=== PATIENT | female | born 1955 | race Caucasian/White ===

== ENCOUNTER 2018-05-25 21:49 | Emergency (ER) | payer OTHER ==
[~2018-05-25] VITALS: Ht 157.5 cm; Wt 67.9 kg
[~2018-05-25 21:49] MED LIST: AMLH550 PO; FLUO1CRE TOP
[2018-05-25 21:55] VITALS: TEMP 36.5; Ht 157.5 cm; Wt 67.9 kg
[2018-05-25] MEDS ORDERED: ONDANSETRON INJ 2 MG/ML 2 ML VIAL IV STA (22:06)
[2018-05-25] MEDS ORDERED: SODIUM CHLORIDE 0.9% 1000ML 1,000 ML IV STA (22:06)
[2018-05-25] MEDS ORDERED: HYDROmorphone INJ 0.5 MG/0.5 ML SYR IV PRN (22:15)
[2018-05-25 22:34] LABS: BASO % 0.2 %; BASO ABS # 0.02 K/uL (0-0.2); EOS % 0.1 %; EOS ABS # 0.01 K/uL (0-0.5); HEMATOCRIT 46.6 % (37-47); IG# 0.04 K/uL (0.00-0.02); LYMPH % 15.7 %; LYMPH ABS # 1.68 K/uL (1.2-3.4); MEAN CELL VOLUME 88.1 fL (80-100); MEAN CORPUSCULAR HEMOGLOBIN 30.2 pg (25-34); MEAN CORPUSCULAR HGB CONC 34.3 g/dl (32-36); MEAN PLATELET VOLUME 11.7 fL (7.4-10.4); MONO % 8.4 %; NEUT % 75.2 %; NEUT ABS # 8.08 K/uL (1.4-6.5); PLATELET COUNT 188 K/uL (130-400); RED CELL DISTRIBUTION WIDTH SD 41.2 fL (36.4-46.3); WHITE BLOOD COUNT 10.73 K/uL (4.8-10.8)
[2018-05-25 22:53] LABS: CALCIUM 9.8 mg/dl (8.5-10.1); CREATININE 1.18 mg/dl (0.60-1.20); POTASSIUM 3.5 mmol/L (3.5-5.1); TOTAL PROTEIN 7.2 gm/dl (6.4-8.2)
--- NOTE | 2018-05-25 22:55 | DIAGNOSTIC IMAGING REPORT ---
ABD/PELVIS WITHOUT FOR STONE HISTORY: 63 years-old Female right flank pain, prior stones acute right-sided flank pain with history of nephrolithiasis COMPARISON: CT abdomen and pelvis 07/22/2013 TECHNIQUE: Multiple axial CT images of the abdomen and pelvis were obtained without use of IV contrast. A dose lowering technique was used consistent with the principals of HARRIETT. FINDINGS: Mild dependent subsegmental bibasilar opacities suggest atelectasis. No pneumatosis or pneumoperitoneum. Imaged inferior cardiac chambers appear mildly enlarged. Mural fibrofatty changes about the apical septal left ventricular apex suggest scarring from prior infarction. Gallbladder, liver, spleen, pancreas and adrenal glands are unremarkable. Left kidney and ureter are unremarkable. No renal or ureteral calculi identified. Postoperative changes about the right ureteropelvic junction with progressively worsened right-sided hydronephrosis, now appearing to be severe. Mild perinephric stranding. There is abrupt narrowing at the ureteropelvic junction which is a chronic finding. The remainder of the right ureter appears unremarkable. Bladder and uterus are within normal limits. Unchanged prominence of the right ovary, 3.6 x 3.5 cm. Mild atherosclerosis about the aorta. Dense calcification adjacent to the left renal artery appears unchanged. No pathologically enlarged lymph nodes identified. There is no bowel obstruction or focal bowel wall thickening. Colonic diverticulosis without diverticulitis. Terminal ileum and appendix appear unremarkable. The breast parenchyma and soft tissues are within normal limits. Bones appear to be intact. Degenerative changes of the SI joints. Moderate intervertebral disc space narrowing at L4-L5. Multilevel annular disc bulging. IMPRESSION: 1. Progressively worsened right-sided hydronephrosis, now severe with findings again suggesting chronic UPJ obstruction with postsurgical changes noted about the right renal pelvis. 2. No ureteral calculi or left hydronephrosis. 3. Unchanged prominence of the right ovary. 4. No bowel obstruction or focal bowel wall thickening. Normal appendix. 5. Colonic diverticulosis without diverticulitis. The above report was generated using voice recognition software. It may contain grammatical, syntax or spelling errors. Electronically signed by: Jovanny Liao M.D. 05/25/2018 10:54 PM Dictated Date/Time: 05/25/2018 10:47 PM
[2018-05-25] MEDS ORDERED: HYDR12.55 PO (23:12)
[2018-05-25] MEDS ORDERED: AMLH/550 PO (23:12)
[2018-05-25 23:30] VITALS: PULSE 71
[2018-05-26] MEDS ORDERED: CIPR-255 PO (00:25)
[2018-05-26] MEDS ORDERED: NORCO 5/325MG HOME PACK PO ONE (00:30)
[2018-05-26] MEDS ORDERED: CIPROFLOXACIN 500MG HOME PACK PO ONE (00:30)
[2018-05-26 00:46] VITALS: BP 130/55; O2SAT 98
--- NOTE | 2018-05-26 01:13 | EMERGENCY ROOM VISIT NOTE ---
History Report prepared by Suzette: Johnnie Zarco Under the Supervision of: Dr. Jarek Lisa M.D. First contact with patient: 21:59 Chief Complaint: FLANK PAIN Stated Complaint: BACK PAIN ON R SIDE GOING INTO FRONT,VOMITING History of Present Illness The patient is a 63 year old female who presents to the Emergency Room with complaints of constant right flank pain that started today. She rates her pain as a 9/10 in severity. The patient states the pain radiates from her right back into her right abdomen. She describes the pain as a sharp sensation. The patient states that she woke up this morning with pain on her right side. She reports that this afternoon she became nauseous and started vomiting. She states she is currently experiencing shortness of breath and a headache due to her pain. The patient denies LOC, fevers, chills, diaphoresis, visual changes, neck pain, chest pain, melena, hematochezia, urinary symptoms, numbness, weakness, lymphadenopathy, rash, or other complaints. She denies taking any medications for her pain. The patient states that her symptoms are similar to when she had an infection in the past. She states she followed up with Dr. Malone. Source of History: patient Onset: this morning Position: other (right flank) Symptom Intensity: 9/10 Quality: sharp Timing: constant Associated Symptoms: + headache, + SOB, + nausea, + vomiting, + abdominal pain, + back pain Review of Systems See HPI for pertinent positives and negatives. A total of ten systems were reviewed and were otherwise negative. Past Medical & Surgical Medical Problems: (1) HTN (hypertension) (2) Kidney stones Family History Kidney stone Social History Smoking Status: Current Every Day Smoker Alcohol Use: none Drug Use: none Marital Status: Occupation Status: employed Current/Historical Medications Scheduled Amiloride/Hctz (Amiloride/Hydrochlorothia 5-50 mg), 1 TAB PO DAILY Ciprofloxacin Hcl (Cipro), 500 MG PO BID Allergies Coded Allergies: Penicillins (Verified Allergy, Unknown, ., 05/25/18) Sulfa Drugs (Verified Allergy, Unknown, ., 05/25/18) Physical Exam Vital Signs Date Time Temp Pulse Resp B/P (MAP) Pulse Ox O2 Delivery O2 Flow Rate FiO2 05/26/18 00:46 16 130/55 98 05/25/18 23:30 71 05/25/18 23:15 65 18 141/68 97 Room Air 05/25/18 21:55 36.5 67 20 142/62 100 Room Air Physical Exam GENERAL: Awake, alert, uncomfortable appearing, in no distress HENT: Normocephalic, atraumatic. Oropharynx unremarkable. EYES: Normal conjunctiva. Sclera non-icteric. NECK: Supple. No nuchal rigidity. FROM. No masses. RESPIRATORY: Clear to auscultation. No wheezes. No rales. Normal respiratory effort. CARDIAC: Normal rate. Normal rhythm. No murmurs. No rubs. Extremities warm and well perfused. Pulses equal. No JVD. GI: Soft, non-distended. No tenderness to palpation. No rebound or guarding. No masses. RECTAL: Deferred. MUSCULOSKELETAL: Atraumatic. Chest examination reveals no tenderness. The back is symmetrical on inspection without obvious abnormality. There is right flank and right CVA tenderness to palpation. No joint edema. LOWER EXTREMITIES: Calves are equal size bilaterally and non-tender. No edema. No discoloration. NEURO: Normal sensorium. No sensory or motor deficits noted. SKIN: No rash or jaundice noted. Medical Decision & Procedures ER Provider Diagnostic Interpretation: Radiology results as stated below per my review and radiologist interpretation: ABD/PELVIS WITHOUT FOR STONE HISTORY: 63 years-old Female right flank pain, prior stones acute right-sided flank pain with history of nephrolithiasis COMPARISON: CT abdomen and pelvis 07/22/2013 TECHNIQUE: Multiple axial CT images of the abdomen and pelvis were obtained without use of IV contrast. A dose lowering technique was used consistent with the principals of HARRIETT. FINDINGS: Mild dependent subsegmental bibasilar opacities suggest atelectasis. No pneumatosis or pneumoperitoneum. Imaged inferior cardiac chambers appear mildly enlarged. Mural fibrofatty changes about the apical septal left ventricular apex suggest scarring from prior infarction. Gallbladder, liver, spleen, pancreas and adrenal glands are unremarkable. Left kidney and ureter are unremarkable. No renal or ureteral calculi identified. Postoperative changes about the right ureteropelvic junction with progressively worsened right-sided hydronephrosis, now appearing to be severe. Mild perinephric stranding. There is abrupt narrowing at the ureteropelvic junction which is a chronic finding. The remainder of the right ureter appears unremarkable. Bladder and uterus are within normal limits. Unchanged prominence of the right ovary, 3.6 x 3.5 cm. Mild atherosclerosis about the aorta. Dense calcification adjacent to the left renal artery appears unchanged. No pathologically enlarged lymph nodes identified. There is no bowel obstruction or focal bowel wall thickening. Colonic diverticulosis without diverticulitis. Terminal ileum and appendix appear unremarkable. The breast parenchyma and soft tissues are within normal limits. Bones appear to be intact. Degenerative changes of the SI joints. Moderate intervertebral disc space narrowing at L4-L5. Multilevel annular disc bulging. IMPRESSION: 1. Progressively worsened right-sided hydronephrosis, now severe with findings again suggesting chronic UPJ obstruction with postsurgical changes noted about the right renal pelvis. 2. No ureteral calculi or left hydronephrosis. 3. Unchanged prominence of the right ovary. 4. No bowel obstruction or focal bowel wall thickening. Normal appendix. 5. Colonic diverticulosis without diverticulitis. The above report was generated using voice recognition software. It may contain grammatical, syntax or spelling errors. Electronically signed by: Jovanny Liao M.D. 05/25/2018 10:54 PM Dictated Date/Time: 05/25/2018 10:47 PM Laboratory Results 05/25/18 22:22 Red Blood Count 5.29, Mean Corpuscular Volume 88.1, Mean Corpuscular Hemoglobin 30.2, Mean Corpuscular Hemoglobin Concent 34.3, Mean Platelet Volume 11.7, Neutrophils (%) (Auto) 75.2, Lymphocytes (%) (Auto) 15.7, Monocytes (%) (Auto) 8.4, Eosinophils (%) (Auto) 0.1, Basophils (%) (Auto) 0.2, Neutrophils # (Auto) 8.08, Lymphocytes # (Auto) 1.68, Monocytes # (Auto) 0.90, Eosinophils # (Auto) 0.01, Basophils # (Auto) 0.02 05/25/18 22:22 Test 05/25/18 22:22 05/25/18 23:10 White Blood Count 10.73 K/uL (4.8-10.8) Red Blood Count 5.29 M/uL (4.2-5.4) Hemoglobin 16.0 g/dL (12.0-16.0) Hematocrit 46.6 % (37-47) Mean Corpuscular Volume 88.1 fL (80-100) Mean Corpuscular Hemoglobin 30.2 pg (25-34) Mean Corpuscular Hemoglobin Concent 34.3 g/dl (32-36) Platelet Count 188 K/uL (130-400) Mean Platelet Volume 11.7 fL (7.4-10.4) Neutrophils (%) (Auto) 75.2 % Lymphocytes (%) (Auto) 15.7 % Monocytes (%) (Auto) 8.4 % Eosinophils (%) (Auto) 0.1 % Basophils (%) (Auto) 0.2 % Neutrophils # (Auto) 8.08 K/uL (1.4-6.5) Lymphocytes # (Auto) 1.68 K/uL (1.2-3.4) Monocytes # (Auto) 0.90 K/uL (0.11-0.59) Eosinophils # (Auto) 0.01 K/uL (0-0.5) Basophils # (Auto) 0.02 K/uL (0-0.2) RDW Standard Deviation 41.2 fL (36.4-46.3) RDW Coefficient of Variation 13.0 % (11.5-14.5) Immature Granulocyte % (Auto) 0.4 % Immature Granulocyte # (Auto) 0.04 K/uL (0.00-0.02) Anion Gap 8.0 mmol/L (3-11) Est Creatinine Clear Calc Drug Dose 43.5 ml/min Estimated GFR () 56.4 Estimated GFR (Non- 48.7 BUN/Creatinine Ratio 12.5 (10-20) Calcium Level 9.8 mg/dl (8.5-10.1) Total Bilirubin 0.8 mg/dl (0.2-1) Direct Bilirubin 0.2 mg/dl (0-0.2) Aspartate Amino Transf (AST/SGOT) 14 U/L (15-37) Alanine Aminotransferase (ALT/SGPT) 18 U/L (12-78) Alkaline Phosphatase 123 U/L (45-117) Total Protein 7.2 gm/dl (6.4-8.2) Albumin 4.0 gm/dl (3.4-5.0) Lipase 83 U/L (73-393) Urine Color YELLOW Urine Appearance CLEAR (CLEAR) Urine pH 6.5 (4.5-7.5) Urine Specific [place] 1.024 (1.000-1.030) Urine Protein NEG (NEG) Urine Glucose (UA) NEG (NEG) Urine Ketones 1+ (NEG) Urine Occult Blood NEG (NEG) Urine Nitrite NEG (NEG) Urine Bilirubin NEG (NEG) Urine Urobilinogen NEG (NEG) Urine Leukocyte Esterase NEG (NEG) Laboratory results reviewed by me Medications Administered Medications (Trade) Dose Ordered Sig/Sharath Route Start Time Stop Time Status Last Admin Dose Admin Ondansetron HCl (Zofran Inj) 4 mg NOW STAT IV 05/25/18 22:06 05/25/18 22:09 DC 05/25/18 22:29 4 MG Sodium Chloride 1,000 ml @ 200 mls/hr Q5H STAT IV 05/25/18 22:06 05/26/18 03:05 05/25/18 22:29 200 MLS/HR Hydromorphone HCl (Dilaudid Inj) 0.5 mg Q15M PRN IV 05/25/18 22:15 06/08/18 22:14 05/25/18 22:29 0.5 MG ED Course 2205: The patient was evaluated in room A02. A complete history and physical exam was performed. 2206: Ordered Sodium Chloride 1000 ml @ 200 mls/hr IV, Zofran Injection 4 mg IV. 2215: Ordered Dilaudid Injection 0.5 mg IV. 2246: The patient is currently at CT. 2259: I reevaluated the patient and she is feeling better. 0011: I reevaluated the patient. Discussed results and discharge instructions: He verbalized understanding and agreement. The patient is ready for discharge. 0030: Ordered Ciprofloxacin 1 homepack PO, Hydrocodone Bitart/ Acetaminophen 1 homepack PO. Medical Decision Prior records/ancillary studies reviewed. Triage Nursing notes reviewed and agree them. Additional history obtained from the family. The patient's history was concerning for flank and abdominal pain. Differential diagnosis: Etiologies such as renal colic, appendicitis, diverticulitis, mesenteric ischemia, aortic pathology, infections, inflammatory bowel disease, PUD, biliary pathology, UTI, as well as others were entertained. Physical examination findings: As above. ER treatment provided: IV Zofran IV normal saline IV Dilaudid On reassessment the patient felt better. Cipro home pack Diagnostic interpretation by me: The labs revealed an unremarkable CBC and chemistry panel. Urinalysis unremarkable Imaging studies: CT of the abdomen and pelvis as above. Right-sided hydro-noted. Chronic UPJ obstruction. The patient has right flank pain. She has chronic right UPJ obstruction findings on CAT scan. There does not appear to be any acute ureterolithiasis. Urinalysis is rather unremarkable. She does have a history of pyelonephritis. Given the findings a urine culture was sent. I will cover the patient on Cipro. She is doing very well at this time and I believe can be discharged safely. If she worsens in any way she will be back to the emergency department. She has a urologist with the [facility] team and will follow up with them. By the evaluation outlined above emergent etiologies such as appendicitis, diverticulitis, mesenteric ischemia, aortic pathology, infections, inflammatory bowel disease, PUD, biliary pathology, kidney stone as well as others were deemed relatively unlikely. The patient and were informed about the findings as listed above. All questions were answered and they were pleased with the treatment. Return instructions were outlined and the patient was discharged in stable condition. Outpatient prescription management: [place] home pack Cipro Referral: The pt was referred to [facility] for follow up care regarding her issue. Medication Reconcilliation Current Medication List: was personally reviewed by me Blood Pressure Screening Patient's blood pressure: Elevated blood pressure Blood pressure disposition: Elevated BP felt to be situational Impression Primary Impression: Right flank pain Scribe Attestation The scribe's documentation has been prepared under my direction and personally reviewed by me in its entirety. I confirm that the note above accurately reflects all work, treatment, procedures, and medical decision making performed by me. Departure Information Dispostion Home / Self-Care Prescriptions Ciprofloxacin Hcl (CIPRO) 500 Mg Tab 500 MG PO BID, #12 TAB Prov: Jarek Lisa MD 05/26/18 Referrals No Doctor, Assigned (PCP) Forms HOME CARE DOCUMENTATION FORM, IMPORTANT VISIT INFORMATION Patient Instructions My [facility] Additional Instructions Hydrocodone/acetaminophen 5/325mg: Take 1-2 pills every 6 hours as needed for pain. Avoid additional Acetaminophen/Tylenol, alcohol, operating machinery or dangerous equipment, working on ladders or roofs, DRIVING, or situations where being under the influence may be dangerous. It is recommended to use a stool softener such as Colace, 100mg twice daily while taking this medication to avoid constipation. Ciprofloxacin 500mg: Take one pill twice daily for 7 days for your infection. All antibiotics can cause diarrhea. If this occurs and you feel worse or it does not resolve in 1-2 days follow up with your doctor or return to the Emergency Department as this could be signs of serious underlying problems. Any medication can cause an allergic reaction or complication, stop the pills immediately and return to the ER for rash, hives, breathing difficulties, tendon pain, tendon injury, or swelling. Ibuprofen(Motrin, Advil) may be used for fever or pain. Use 600mg every six hours as needed. Take with food. Avoid using more than 2400mg in a 24 hour period. Do not use 2400mg per day for more than three consecutive days without physician direction. Prolonged inappropriate use can lead to stomach upset or ulcers. This medication can be taken if you need to drive, work, or perform activities which may be dangerous when taking narcotic pain medication. (AND/OR) Acetaminophen(Tylenol) may be used for fever or pain. Use 1000mg every six hours as needed. Avoid using more than 4000mg in a 24 hour period. This medication can be taken if you need to drive, work, or perform activities which may be dangerous when taking narcotic pain medication. Rest and avoid strenuous activity until your symptoms resolve. Return to the ER for worsening abdominal or back pain, vomiting, fevers, passing out, or as needed. Follow up with [facility] tomorrow, [phone], to arrange a visit. Follow-up with your primary clinic this week as well.
== END 2018-05-26 00:45 | disposition home or self-care (01) ==
LOC: C.EDB 21:51 → C.EDA 05-26 00:45
DX: N13.0 Hydronephrosis with ureteropelvic junction obstruction (principal); I10 Essential (primary) hypertension; F17.200 Nicotine dependence, unspecified, uncomplicated; Z87.442 Personal history of urinary calculi; Z84.1 Family history of disorders of kidney and ureter; Z88.0 Allergy status to penicillin; Z88.2 Allergy status to sulfonamides

== ENCOUNTER 2018-05-31 23:57 | Observation (INO) | payer SELFPAY ==
[~2018-05-31] VITALS: Ht 157.5 cm; Wt 70.2 kg
[~2018-05-31 23:57] MED LIST changes: +AMLH/550 PO; -AMLH550 PO; +CIPR-255 PO; -FLUO1CRE TOP
[2018-06-01] VITALS (14 sets, daily range): BP systolic 111–130; BP diastolic 60–77; PULSE 54–77; TEMP 36.6–37; O2SAT 90–100; Ht 157.5 cm; Wt 70.2 kg
[2018-06-01] MEDS ORDERED: ONDANSETRON INJ 2 MG/ML 2 ML VIAL IV STA (00:11)
[2018-06-01] MEDS ORDERED: SODIUM CHLORIDE 0.9% 1000ML 1,000 ML IV STA (00:11)
[2018-06-01] MEDS ORDERED: HYDROmorphone INJ 1 MG/ML SYR IV STA (00:11)
--- NOTE | 2018-06-01 00:15 | EMERGENCY ROOM VISIT NOTE ---
History Report prepared by Suzette: Valerie Frye Under the Supervision of: Dr. Lio Stephens M.D. First contact with patient: 00:05 Chief Complaint: ABDOMINAL PAIN Stated Complaint: PAIN IN BACK AND FRONT History of Present Illness The patient is a 63 year old female who presents to the Emergency Room with complaints of persistent right flank pain that started a few hours ago. The patient rates her pain a 10/10 in severity. The patient reports she was seen here 5 days ago and was diagnosed with a kidney infection. She states she has been taking her antibiotics and her pain has been under control until tonight. She notes she ate spicy food for dinner and the pain returned shortly after. She also complains of nausea, dry heaves, chills, and leg swelling. She denies vomiting, chest pain, or burning with urination. She denies a history of gallbladder issues. Source of History: patient Onset: a few hours ago Position: other (right flank) Symptom Intensity: 10/10 Timing: other (persistent) Associated Symptoms: + chills, + nausea, No chest pain, No vomiting, No urinary symptoms Review of Systems See HPI for pertinent positives & negatives. A total of 10 systems reviewed and were otherwise negative. Past Medical & Surgical Medical Problems: (1) HTN (hypertension) (2) Kidney stones (3) Right flank discomfort Family History Kidney stone Social History Smoking Status: Current Every Day Smoker Alcohol Use: none Drug Use: none Marital Status: Occupation Status: employed Current/Historical Medications Scheduled Amiloride/Hctz (Amiloride/Hydrochlorothia 5-50 mg), 1 TAB PO DAILY Ciprofloxacin Hcl (Cipro), 500 MG PO BID Allergies Coded Allergies: Penicillins (Verified Allergy, Unknown, ., 06/01/18) Sulfa Drugs (Verified Allergy, Unknown, ., 06/01/18) Physical Exam Vital Signs Date Time Temp Pulse Resp B/P (MAP) Pulse Ox O2 Delivery O2 Flow Rate FiO2 06/01/18 03:21 63 20 100 Nasal Cannula 2.0 06/01/18 03:06 68 24 100 Nasal Cannula 2.0 06/01/18 03:01 136/67 06/01/18 02:37 70 18 100 Nasal Cannula 2.0 06/01/18 02:31 135/69 06/01/18 02:02 59 21 114/54 100 Nasal Cannula 2.0 06/01/18 00:41 86 Room Air 06/01/18 00:41 58 117/60 98 Nasal Cannula 2.0 06/01/18 00:41 99 Nasal Cannula 2.0 06/01/18 00:36 72 8 00:24 99 Room Air 06/01/18 00:01 36.7 78 18 150/85 99 Room Air Physical Exam GENERAL: Patient is uncomfortable appearing and in moderate distress. She is holding right flank. EYES: No scleral icterus, unremarkable pupils. ENT: Mucous membranes moist, no nasal congestion. NECK: No masses appreciated, no meningismus, trachea is midline. RESPIRATORY: No dyspnea. Clear to auscultation and equal bilaterally. No wheeze , no rhonchi. CARDIOVASCULAR: Regular rate and rhythm. No murmurs, rubs, gallops appreciated. GASTROINTESTINAL: Abdomen soft, nontender, no peritonitis. Bowel sounds positive. No masses appreciated. BACK: No midline tenderness, no CVA tenderness EXTREMITIES: Normal motion all extremities, no cyanosis, no edema. NEUROLOGIC: Alert and oriented, no acute motor or sensory deficits, no focal weakness, cranial nerves grossly intact. SKIN: No rash, no jaundice, no diaphoresis. Medical Decision & Procedures ER Provider Diagnostic Interpretation: Radiology results and stated below per my review and radiologist interpretation: US RENAL: Right kidney measures 11.2 cm in length showing marked hydronephrosis and trace perinephric fluid along the upper and lower poles. Some echogenic cortex. Unable this is possible ureter due to overlying bowel gas. Left kidney measures 9 cm and is otherwise unremarkable with no hydronephrosis seen. If concerned for distal right collecting system obstruction, could consider CT angiogram Radiologist: Parag Gomez M.D. Laboratory Results 06/01/18 00:23 Red Blood Count 5.01, Mean Corpuscular Volume 88.2, Mean Corpuscular Hemoglobin 30.1, Mean Corpuscular Hemoglobin Concent 34.2, Mean Platelet Volume 11.3, Neutrophils (%) (Auto) 76.1, Lymphocytes (%) (Auto) 14.0, Monocytes (%) (Auto) 8.1, Eosinophils (%) (Auto) 1.5, Basophils (%) (Auto) 0.1, Neutrophils # (Auto) 8.67, Lymphocytes # (Auto) 1.59, Monocytes # (Auto) 0.92, Eosinophils # (Auto) 0.17, Basophils # (Auto) 0.01 06/01/18 00:23 Test 06/01/18 00:23 06/01/18 02:10 White Blood Count 11.38 K/uL (4.8-10.8) Red Blood Count 5.01 M/uL (4.2-5.4) Hemoglobin 15.1 g/dL (12.0-16.0) Hematocrit 44.2 % (37-47) Mean Corpuscular Volume 88.2 fL (80-100) Mean Corpuscular Hemoglobin 30.1 pg (25-34) Mean Corpuscular Hemoglobin Concent 34.2 g/dl (32-36) Platelet Count 186 K/uL (130-400) Mean Platelet Volume 11.3 fL (7.4-10.4) Neutrophils (%) (Auto) 76.1 % Lymphocytes (%) (Auto) 14.0 % Monocytes (%) (Auto) 8.1 % Eosinophils (%) (Auto) 1.5 % Basophils (%) (Auto) 0.1 % Neutrophils # (Auto) 8.67 K/uL (1.4-6.5) Lymphocytes # (Auto) 1.59 K/uL (1.2-3.4) Monocytes # (Auto) 0.92 K/uL (0.11-0.59) Eosinophils # (Auto) 0.17 K/uL (0-0.5) Basophils # (Auto) 0.01 K/uL (0-0.2) RDW Standard Deviation 41.2 fL (36.4-46.3) RDW Coefficient of Variation 13.0 % (11.5-14.5) Immature Granulocyte % (Auto) 0.2 % Immature Granulocyte # (Auto) 0.02 K/uL (0.00-0.02) Anion Gap 9.0 mmol/L (3-11) Est Creatinine Clear Calc Drug Dose 44.5 ml/min Estimated GFR () 57.0 Estimated GFR (Non- 49.2 BUN/Creatinine Ratio 13.7 (10-20) Calcium Level 9.0 mg/dl (8.5-10.1) Magnesium Level 1.9 mg/dl (1.8-2.4) Total Bilirubin 0.4 mg/dl (0.2-1) Direct Bilirubin 0.1 mg/dl (0-0.2) Aspartate Amino Transf (AST/SGOT) 11 U/L (15-37) Alanine Aminotransferase (ALT/SGPT) 17 U/L (12-78) Alkaline Phosphatase 132 U/L (45-117) Total Protein 6.9 gm/dl (6.4-8.2) Albumin 3.7 gm/dl (3.4-5.0) Lipase 121 U/L (73-393) Urine Color YELLOW Urine Appearance CLEAR (CLEAR) Urine pH 6.5 (4.5-7.5) Urine Specific Blanchard 1.011 (1.000-1.030) Urine Protein NEG (NEG) Urine Glucose (UA) NEG (NEG) Urine Ketones NEG (NEG) Urine Occult Blood NEG (NEG) Urine Nitrite NEG (NEG) Urine Bilirubin NEG (NEG) Urine Urobilinogen NEG (NEG) Urine Leukocyte Esterase NEG (NEG) Urine WBC (Auto) 0 /hpf (0-5) Urine RBC (Auto) 0-4 /hpf (0-4) Urine Hyaline Casts (Auto) 0 /lpf (0-5) Urine Epithelial Cells (Auto) 10-20 /lpf (0-5) Urine Bacteria (Auto) NEG (NEG) Laboratory results as reviewed by me. Medications Administered Medications (Trade) Dose Ordered Sig/Sharath Route Start Time Stop Time Status Last Admin Dose Admin Sodium Chloride 1,000 ml @ 999 mls/hr Q1H1M STAT IV 06/01/18 00:11 06/01/18 01:11 DC 06/01/18 00:24 999 MLS/HR Hydromorphone HCl (Dilaudid Inj) 1 mg NOW STAT IV 06/01/18 00:11 06/01/18 00:13 DC 06/01/18 00:24 1 MG Ondansetron HCl (Zofran Inj) 4 mg NOW STAT IV 06/01/18 00:11 06/01/18 00:13 DC 06/01/18 00:24 4 MG Hydromorphone HCl (Dilaudid Inj) 0.5 mg NOW STAT IV 06/01/18 03:07 06/01/18 03:08 DC 06/01/18 03:34 0.5 MG Potassium Chloride (Klor-Con M10) 40 meq NOW STAT PO 06/01/18 03:26 06/01/18 03:38 DC 06/01/18 03:48 40 MEQ ED Course 0006: The patient was evaluated in room C9. A complete history and physical exam was performed. 0100: I rechecked the patient. She states she is feeling much better. 0305: I rechecked the patient. She states her pain is starting to return. I discussed hospitalization with the patient, which she agrees to. 0313: I spoke with Deny Duffy. He agrees to evaluate the patient for further management. He also recommends I consult with the electronic court recorder Urologist. 0320: I have consulted with Stevan Youssef about the patient's case. Medical Decision Differential: Renal Colic, Pyelonephritis, Hydronephrosis, Appendicitis, Diverticulitis, Retroperitoneal Bleed/Infection, Aortic Pathology, MSK, Neurologic Pathology, amongst other pathologies entertained. 63 yr old female with right flank pain arrives with complaint of worsening pain despite round abx and pain medications. CT other day showed right severe hydro. US this appears to continue. Cr OK currently. No evidence this is infectious currently. No peritonitis. Requiring second round abx. Reviewed with hospitalist and Uro. Medication Reconcilliation Current Medication List: was personally reviewed by me Blood Pressure Screening Patient's blood pressure: Normal blood pressure Consults Time Called: [phone] Consulting Physician: Deny Duffy Returned Call: [phone] I spoke with Deny Duffy. He agrees to evaluate the patient for further management. He also recommends I consult with the electronic court recorder Urologist. Additional Consults: Time Called: [phone] Consulted Physician: Stevan Serrano Returned Call: [phone] Additional Comments: I have consulted with Stevan Youssef about the patient's case. Impression Primary Impression: Hydronephrosis, right Additional Impression: Failure of outpatient treatment Scribe Attestation The scribe's documentation has been prepared under my direction and personally reviewed by me in its entirety. I confirm that the note above accurately reflects all work, treatment, procedures, and medical decision making performed by me. Departure Information Dispostion Being Evaluated By Hospitalist Referrals No Doctor, Assigned (PCP) Patient Instructions My [facility] Problem Qualifiers
[2018-06-01 00:36] LABS: BASO % 0.1 %; BASO ABS # 0.01 K/uL (0-0.2); EOS % 1.5 %; EOS ABS # 0.17 K/uL (0-0.5); HEMATOCRIT 44.2 % (37-47); HEMOGLOBIN 15.1 g/dL (12.0-16.0); IG# 0.02 K/uL (0.00-0.02); LYMPH ABS # 1.59 K/uL (1.2-3.4); MEAN CELL VOLUME 88.2 fL (80-100); MEAN CORPUSCULAR HEMOGLOBIN 30.1 pg (25-34); MEAN CORPUSCULAR HGB CONC 34.2 g/dl (32-36); MEAN PLATELET VOLUME 11.3 fL (7.4-10.4); MONO % 8.1 %; MONO ABS # 0.92 K/uL (0.11-0.59); NEUT % 76.1 %; NEUT ABS # 8.67 K/uL (1.4-6.5); PLATELET COUNT 186 K/uL (130-400); RED CELL DISTRIBUTION WIDTH SD 41.2 fL (36.4-46.3); WHITE BLOOD COUNT 11.38 K/uL (4.8-10.8)
[2018-06-01] MEDS ORDERED: CIPR1TAB10 PO (00:41)
[2018-06-01 00:57] LABS: ALBUMIN 3.7 gm/dl (3.4-5.0); CREATININE 1.17 mg/dl (0.60-1.20); POTASSIUM 3.4 mmol/L (3.5-5.1); TOTAL PROTEIN 6.9 gm/dl (6.4-8.2)
[2018-06-01] MEDS ORDERED: HYDROmorphone INJ 0.5 MG/0.5 ML SYR IV STA (03:07)
[2018-06-01] MEDS ORDERED: POTASSIUM CHLORIDE 10 MEQ TABCR PO STA (03:26)
[2018-06-01] MEDS ORDERED: TRAMADOL HCL 50 MG TAB PO PRN (04:00)
[2018-06-01] MEDS ORDERED: LORAZEPAM 2 MG/ML 1 ML VIAL IV PRN (04:00)
[2018-06-01] MEDS ORDERED: ACETAMINOPHEN 325 MG TAB PO PRN (04:00)
[2018-06-01] MEDS ORDERED: IV FLUIDS COMPLETED PRN (04:15)
[2018-06-01] MEDS ORDERED: LORAZEPAM INJ 0.5 MG in SYRINGE 0.75 ML IV PRN (04:45)
[2018-06-01] MEDS: NSS + 20MEQ KCL 1000ML 1,000 ML IV SCH ×3 (04:49→23:41)
[2018-06-01] MEDS: MoRPHine SULFATE 4 MG/ML 1 ML CARP\\VIAL IV PRN ×2 (06:34→09:50)
--- NOTE | 2018-06-01 07:00 | DIAGNOSTIC IMAGING REPORT ---
RENAL ULTRASOUND CLINICAL HISTORY: Worsening right flank pain. COMPARISON STUDY: CT of the abdomen and pelvis April 27, 2018. TECHNIQUE: Sonography of the kidneys and the urinary bladder was performed. FINDINGS: The right kidney measures 11.2 cm in maximal dimension and the left measures 9 cm. Severe right hydronephrosis is again noted, as shown on CT of May 25, 2018. There is trace right perinephric fluid. Right renal atrophy is noted. There is no left hydronephrosis. Right ureteral jet was not identified. No calculi were identified. IMPRESSION: 1. Severe right hydronephrosis, similar to CT of May 25, 2018 when allowing for differences in technique. Trace right perinephric fluid. 2. No left hydronephrosis. Electronically signed by: Juanjose Kerns M.D. 06/01/2018 6:59 AM Dictated Date/Time: 06/01/2018 6:57 AM
[2018-06-01] MEDS: PROCHLORPERAZINE INJ 5 MG in SYRINGE 4 ML IV PRN ×2 (07:04→15:16)
[2018-06-01] MEDS: NICOTINE 21 MG/24 HR TDSY TD SCH (08:34)
[2018-06-01 08:42] LABS: PTT PATIENT 26.3 SECONDS (21.0-31.0)
[2018-06-01] MEDS ORDERED: ENOXAPARIN 40 MG/0.4 ML SYR SQ SCH (10:00)
[2018-06-01] MEDS ORDERED: Cysto-Conray II 17.2% 250ML BOTTLE ONE (11:10)
[2018-06-01] MEDS ORDERED: ONDANSETRON INJ 2 MG/ML 2 ML VIAL ONE (11:43)
[2018-06-01] MEDS ORDERED: PROPOFOL IV EMULSION 10 MG/ML 20 ML VIAL ONE (11:43)
[2018-06-01] MEDS ORDERED: LIDOCAINE HCL 2% 2 ML VIAL (20MG/ML) ONE (11:43)
[2018-06-01] MEDS ORDERED: FENTANYL CITRATE INJ 50 MCG/1 ML 2 ML VIAL ONE (11:44)
[2018-06-01] MEDS ORDERED: MIDAZOLAM HCL 1 MG/ML 2ML VIAL ONE (11:44)
[2018-06-01] MEDS ORDERED: NURSING VERBAL MED ORDER ONE (11:45)
--- NOTE | 2018-06-01 11:56 | Urology Consultation ---
History General Date of Service: Jun 01, 2018. Primary Care Physician: No Doctor, Assigned Pt seen a urologist before?: Yes If yes, why?: right hydronephrosis and right pyelolithotomy years ago History of Present Illness 63 y/o female with history of r pyelolithotomy in the 80s by Dr. August .Five years ago after having episodes of R flank pain she saw Dr. Velasquez and had a renal scan with lasix that showed stasis but no obstruction. Recently her flank pain has been recurring She was seen a week ago and had a ct that showed worsening r hydronephrosis and was given antibiotics for presumed pyelonephritis. This pain improved but recurred again yesterday and persists .She appears to have UPJ obstruction and I have offered to place a stent and perform a retrograde . Pt agrees and understands that if this resolves her pain she will need a UPJ repair in the future. I also explained she may have pain from the stent and hematuria Laboratory Labs were reviewed and are within normal limits unless listed below. Labs are available in the chart and at [facility] Problem List Medical Problems: (1) Failure of outpatient treatment Status: Acute (2) Hydronephrosis, right Status: Acute (3) Right flank pain Status: Acute Past History no pertinent history Pt had a problem w anesthesia?: No Past Surgical History: other Family History Kidney stone Social History Hx Tobacco Use In Past Year?: Yes (approximately 1ppd) Smoking: less than 1 pack/day Alcohol: socially Drug use: none Marital status: Housing status: lives with family Occupation status: employed Immunizations History of Influenza Vaccine: N/A History of Tetanus Vaccine?: No History of Pneumococcal: No History of Hepatitis B Vaccine: No Allergies Coded Allergies: Penicillins (Verified Allergy, Unknown, ., 06/01/18) Sulfa Drugs (Verified Allergy, Unknown, ., 06/01/18) Medications Home Medications: Home Meds and Scripts Medications Dose Route/Sig Max Daily Dose Days Date Category Cipro (Ciprofloxacin Hcl) 500 Mg Tab 500 Mg PO BID 06/01/18 Reported Amiloride/Hydrochlorothia 5-50 mg (Amiloride/HCTZ) 1 Ea Tab 1 Tab PO DAILY 05/25/18 Reported Inpatient Medications: Current Inpatient Medications Medications (Trade) Dose Ordered Sig/Sharath Route Start Time Stop Time Status Last Admin Dose Admin Tramadol HCl (Ultram Tab) not relieved by tylenol @ Q6H PRN PO 06/01/18 04:00 07/01/18 03:59 Prochlorperazine Edisylate 5 mg/ Syringe 5 ml @ 5 mls/min Q6H PRN IV 06/01/18 04:00 07/01/18 03:59 06/01/18 07:04 5 MLS/MIN Morphine Sulfate (MoRPHine SULFATE INJ) 4 mg Q3H PRN IV 06/01/18 04:00 06/15/18 03:59 06/01/18 09:50 4 MG Enoxaparin Sodium (Lovenox Inj) 40 mg Q24H SQ 06/01/18 10:00 07/01/18 09:59 06/01/18 09:49 40 MG Acetaminophen (Tylenol Tab) 650 mg Q4H PRN PO 06/01/18 04:00 07/01/18 03:59 Nicotine (Nicoderm Cq 21MG Patch) 1 patch QAM TD 06/01/18 09:00 07/01/18 08:59 Miscellaneous (Remove Nicoderm Patch) 1 ea HS N/A 06/01/18 21:00 07/01/18 20:59 Potassium Chloride/Sodium Chloride 1,000 ml @ 100 mls/hr Q10H IV 06/01/18 04:45 07/01/18 04:44 06/01/18 04:49 100 MLS/HR Miscellaneous (Iv Fluids Completed) 1 ea PRN PRN N/A 06/01/18 04:15 06/01/19 04:14 Lorazepam 0.5 mg/ Syringe 1 ml @ 1 mls/min Q4H PRN IV 06/01/18 04:45 07/01/18 04:44 Miscellaneous Information (Nursing Verbal Med Order) 1 ea ONE ONCE N/A 06/01/18 11:45 06/01/18 11:46 UNV Review of Systems Review of Systems All Other Systems: Reviewed and Negative Physical Exam Vital Signs: Vital Signs Past 12 Hours Date Time Temp Pulse Resp B/P (MAP) Pulse Ox O2 Delivery O2 Flow Rate FiO2 06/01/18 11:24 36.8 62 18 122/72 (89) 100 Nasal Cannula 2.0 06/01/18 10:20 16 98 Nasal Cannula 2.0 06/01/18 10:19 98 Nasal Cannula 2.0 06/01/18 10:00 59 16 112/67 (82) 92 Room Air 06/01/18 09:10 94 Room Air 06/01/18 07:57 36.6 65 18 124/72 (89) 94 Room Air 06/01/18 07:15 Room Air 06/01/18 04:25 36.7 54 16 125/76 90 Room Air 06/01/18 04:11 60 17 125/74 95 06/01/18 04:02 125/74 06/01/18 03:48 60 06/01/18 03:41 60 17 95 Room Air 06/01/18 03:36 64 28 99 Room Air 06/01/18 03:34 142/71 06/01/18 03:21 63 20 100 Nasal Cannula 2.0 06/01/18 03:06 68 24 100 Nasal Cannula 2.0 06/01/18 03:01 136/67 06/01/18 02:37 70 18 100 Nasal Cannula 2.0 06/01/18 02:31 135/69 06/01/18 02:02 59 21 114/54 100 Nasal Cannula 2.0 06/01/18 00:41 86 Room Air 06/01/18 00:41 58 117/60 98 Nasal Cannula 2.0 06/01/18 00:41 99 Nasal Cannula 2.0 06/01/18 00:36 72 06/01/18 00:24 99 Room Air 06/01/18 00:01 36.7 78 18 150/85 99 Room Air Physical Exam: General Appearance: + moderate distress Eyes: bilateral eyes normal inspection, bilateral eyes PERRL, bilateral eyes EOMI ENT: normal ENT inspection, hearing grossly normal, TMs normal, pharynx normal Neck: supple, no adenopathy, thyroid normal, no JVD Respiratory/Chest: chest non-tender, lungs clear, normal breath sounds, no respiratory distress, no accessory muscle use Cardiovascular: regular rate, rhythm, no edema, no gallop, no JVD, no murmur Extremities: normal range of motion, non-tender, normal inspection, no pedal edema, no calf tenderness, normal capillary refill Neurologic/Psychiatric: collections representative II-XII nml as tested, no motor/sensory deficits, alert, normal mood/affect, oriented x 3 Skin: normal color, warm/dry, no rash Lymphatic: no adenopathy Assessment & Plan Assessment & Plan Treatment Planned: cystoscopy w/ stent
[2018-06-01] MEDS ORDERED: EpHEDrine SULFATE INJ 50 MG/ML AMP IV PRN (12:00)
[2018-06-01] MEDS ORDERED: ATROPINE SULFATE 0.1 MG/ML 5ML SYR IV PRN (12:00)
[2018-06-01] MEDS ORDERED: LABETALOL HCL IV 5 MG/ML 20ML IV PRN (12:00)
[2018-06-01] MEDS ORDERED: HYDROmorphone INJ 1 MG/ML SYR IV PRN (12:00)
[2018-06-01] MEDS ORDERED: MEPERIDINE HCL 25 MG/ML CARP IV PRN (12:00)
[2018-06-01] MEDS ORDERED: FENTANYL CITRATE INJ 50 MCG/1 ML 2 ML VIAL IV PRN (12:00)
[2018-06-01] MEDS ORDERED: ONDANSETRON INJ 2 MG/ML 2 ML VIAL IV PRN (12:00)
[2018-06-01] MEDS ORDERED: CIPROFLOXACIN 400MG / 200ML D5W ONE (12:16)
--- NOTE | 2018-06-01 12:47 | [facility] Post Operative Brief Note ---
Immediate Operative Summary Operative Date Jun 01, 2018. Pre-Operative Diagnosis Right Hydronephrosis, Possible Right Ureteral Pelvic Junction Obstruction, Renal Colic Post-Operative Diagnosis Right Hydronephrosis, Possible Right Ureteral Pelvic Junction Obstruction, Renal Colic, Urethral Stenosis Procedure(s) Performed Cystoscopy, Urethral Dilation, Right Retrograde, Right Ureteral Stent Insertion Surgeon Dr. Bandar Hamilton Respiratory Care Assistant Surgeon(s) None Estimated Blood Loss 5ML Findings See Below urethral stenosis Specimens none per surgeon Drains None cysto r stent Anesthesia Type General Disposition Disposition: Recovery Room / PACU (unable to pass a 21 scope)
--- NOTE | 2018-06-01 12:54 | DIAGNOSTIC IMAGING REPORT ---
RETROGRADE INCLUDES KUB CLINICAL HISTORY: RT RETRO/STENT stent placement TECHNIQUE: Image intensifier. COMPARISON STUDY: None FINDINGS: 3 images acquired. Fluoroscopic time 3 minutes 19 seconds. IMPRESSION: Retrograde placement of a right ureteral stent. The above report was generated using voice recognition software. It may contain grammatical, syntax or spelling errors. Electronically signed by: Julian Boyer M.D. 06/01/2018 12:53 PM Dictated Date/Time: 06/01/2018 12:53 PM
--- NOTE | 2018-06-01 12:56 | HISTORY & PHYSICAL EXAMINATION ---
DATE OF ADMISSION: 06/01/2018 PRIMARY CARE DOCTOR: No primary care doctor. The patient is seen on 06/01/2018. CHIEF COMPLAINT: Right flank pain. HISTORY OF PRESENT ILLNESS: History obtained from the patient and records. Medical history is significant for hypertension, urolithiasis, and ongoing tobacco abuse. Recent confinement in 06/2013 for pyelonephritis. Last week, the patient had achy right flank pain similar to kidney stone pain associated with nauseous, emesis. Seen at the ER. CT abdomen and pelvis showed worsening right hydronephrosis, findings suggestive of chronic UPJ obstruction, postsurgical changes. Patient discharged on Cipro, narcotic medication. Told to follow up with outpatient with her urologist. Symptoms improved. Last night, the patient had recurrence of symptoms. No chest pain, no shortness of breath, some chills, no hematuria. MEDICAL HISTORY: As above. OPERATIONS: Urologic procedures. HOME MEDICATIONS: Include amiloride-triamterene. ALLERGIES: ALLERGIC TO PENICILLIN, SULFA. FAMILY HISTORY: Kidney stones. PERSONAL AND SOCIAL HISTORY: One pack daily. No chronic intake of alcoholic beverages. Retired from meat factory work. REVIEW OF SYSTEMS: As per HPI, all 10 systems reviewed. All other ROS negative. PHYSICAL EXAMINATION: VITAL SIGNS: Blood pressure was noted to be 130/80, pulse rate 60, RR 20, temperature 36.7, sats 90 on room air. GENERAL: Noted to be uncomfortable, no respiratory distress. SKIN: Normal color, warm. HEENT: Bespectacled, pink palpebral conjunctivae. No ptosis. Dry mucosa. NECK: Short, supple. CHEST: Decreased breath sounds, no tenderness. HEART: RRR, no murmur. ABDOMEN: Soft, nontender. BACK minimal flank tenderness. EXTREMITIES: No LE edema. No tenderness. No gross deformities. NEUROLOGIC: Coherent. No gross focality. LABORATORY DATA: Hemoglobin was noted to be 15.1, hematocrit 44.2, white blood cells 11.38, platelets 186. Sodium 136, potassium 3.4, chloride 103, CO2 26, BUN 16, creatinine 1.73, glucose is 115. UA, epithelial cells. Renal ultrasound, initial read showed severe right hydronephrosis, trace right perinephric fluid. ASSESSMENT AND PLAN: 1. Recurrent right renal colic history of chronic right UPJ obstruction. No sepsis. 2. Hypertension, stable. 3. Hypokalemia secondary to emesis 4. ongoing tobacco abuse. Observation GMF analgesia IV fluids replace potassium. Urology consult. RE Right renal colic (ER provider already in touch with Dr. Braden.) N.p.o. for now in anticipation of procedure in AM Nicotine patch. DVT prophylaxis, Lovenox subQ. Full code. MTDD
--- NOTE | 2018-06-01 13:38 | Anesthesiology Progress Note ---
Anesthesia Post Op Note Date & Time Jun 01, 2018 at 13:38 Vital Signs Pain Intensity: 0 Vital Signs Past 12 Hours Date Time Temp Pulse Resp B/P (MAP) Pulse Ox O2 Delivery O2 Flow Rate FiO2 06/01/18 13:30 36.2 90 22 136/69 97 Nasal Cannula 2 06/01/18 13:20 85 20 140/71 97 Nasal Cannula 2 06/01/18 13:10 92 16 149/54 99 Nasal Cannula 2 06/01/18 13:00 89 20 141/83 100 Oxymask 10 06/01/18 12:51 36.3 89 22 139/71 100 Oxymask 10 06/01/18 11:24 36.8 62 18 122/72 (89) 100 Nasal Cannula 2.0 06/01/18 10:20 16 98 Nasal Cannula 2.0 06/01/18 10:19 98 Nasal Cannula 2.0 06/01/18 10:00 59 16 112/67 (82) 92 Room Air 06/01/18 09:10 94 Room Air 06/01/18 07:57 36.6 65 18 124/72 (89) 94 Room Air 06/01/18 07:15 Room Air 06/01/18 04:25 36.7 54 16 125/76 90 Room Air 06/01/18 04:11 60 17 125/74 95 06/01/18 04:02 125/74 06/01/18 03:48 60 06/01/18 03:41 60 17 95 Room Air 06/01/18 03:36 64 28 99 Room Air 06/01/18 03:34 142/71 06/01/18 03:21 63 20 100 Nasal Cannula 2.0 06/01/18 03:06 68 24 100 Nasal Cannula 2.0 06/01/18 03:01 136/67 06/01/18 02:37 70 18 100 Nasal Cannula 2.0 06/01/18 02:31 135/69 06/01/18 02:02 59 21 114/54 100 Nasal Cannula 2.0 Notes Mental Status: alert / awake / arousable, participated in evaluation Pt Amnestic to Procedure: Yes Nausea / Vomiting: adequately controlled Pain: adequately controlled Airway Patency, RR, SpO2: stable & adequate BP & HR: stable & adequate Hydration State: stable & adequate Anesthetic Complications: no major complications apparent
--- NOTE | 2018-06-01 15:02 | Hospitalist Progress Note ---
Hospitalist Progress Note Date of Service Jun 01, 2018. (Yaquelin Olivo PA-C) ATTENDING ADDENDUM Patient seen and examined, care coordinated with Franchesca Olivo PA-C This is a 63-year-old female admitted with severe right-sided flank pain CT abdomen pelvis shows right-sided hydronephrosis, no renal or ureteric stone Appreciate input from Dr. 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 pain meds Patient needs to follow-up with urology Dr. Garcia in office Please refer to further documentation by Jillian Olivo PA-C for discussion of other chronic issues Kaci Quezada MD (Kaci Quezada M.D.) Subjective Pt evaluation today including: conversation w/ patient, conversation w/ family , physical exam, chart review, lab review, review of studies, review of inpatient medication list Pt seen resting in bed, just returned from urology procedure. S/P cystoscopy with R ureteral stent. Pt had one dose cipro IV. Pt states having less pain to right flank than prior to procedure. Having slight nausea, no vomiting. hasn't voided yet since procedure. Last BM yesterday. Denies fever/chills, diaphoresis , DAILEY, dizziness, CP, SOB, palpitations. (Yaquelin Olivo PA-C) Medications Medications (Trade) Dose Ordered Sig/Sharath Route Start Time Stop Time Status Last Admin Dose Admin Sodium Chloride 1,000 ml @ 999 mls/hr Q1H1M STAT IV 06/01/18 00:11 06/01/18 01:11 DC 06/01/18 00:24 999 MLS/HR Hydromorphone HCl (Dilaudid Inj) 1 mg NOW STAT IV 06/01/18 00:11 06/01/18 00:13 DC 06/01/18 00:24 1 MG Ondansetron HCl (Zofran Inj) 4 mg NOW STAT IV 06/01/18 00:11 06/01/18 00:13 DC 06/01/18 00:24 4 MG Hydromorphone HCl (Dilaudid Inj) 0.5 mg NOW STAT IV 06/01/18 03:07 06/01/18 03:08 DC 06/01/18 03:34 0.5 MG Potassium Chloride (Klor-Con M10) 40 meq NOW STAT PO 06/01/18 03:26 06/01/18 03:38 DC 06/01/18 03:48 40 MEQ Prochlorperazine Edisylate 5 mg/ Syringe 5 ml @ 5 mls/min Q6H PRN IV 06/01/18 04:00 07/01/18 03:59 06/01/18 07:04 5 MLS/MIN Morphine Sulfate (MoRPHine SULFATE INJ) 4 mg Q3H PRN IV 06/01/18 04:00 06/15/18 03:59 06/01/18 09:50 4 MG Enoxaparin Sodium (Lovenox Inj) 40 mg Q24H SQ 06/01/18 10:00 07/01/18 09:59 Future Hold 06/01/18 09:49 40 MG Potassium Chloride/Sodium Chloride 1,000 ml @ 100 mls/hr Q10H IV 06/01/18 04:45 07/01/18 04:44 06/01/18 14:10 100 MLS/HR Iothalamate Meglumine (Cysto-Conray II 17.2%) 250 ml STK-MED ONCE .ROUTE 06/01/18 11:10 06/01/18 11:11 DC 06/01/18 12:42 28 ML Ciprofloxacin/ Dextrose (Cipro / D5W) 400 mg STK-MED ONCE .ROUTE 06/01/18 12:16 06/01/18 12:17 DC 06/01/18 12:18 400 MG (Yaquelin Olivo, VALERY) Objective Vital Signs Date Time Temp Pulse Resp B/P (MAP) Pulse Ox O2 Delivery O2 Flow Rate FiO2 06/01/18 14:05 96 Nasal Cannula 2.0 06/01/18 14:05 36.7 77 14 130/77 (94) 96 Nasal Cannula 2.0 06/01/18 13:50 76 15 141/69 98 Nasal Cannula 2 06/01/18 13:40 79 17 130/85 98 Nasal Cannula 2 06/01/18 13:30 36.2 90 22 136/69 97 Nasal Cannula 2 06/01/18 13:20 85 20 140/71 97 Nasal Cannula 2 06/01/18 13:10 92 16 149/54 99 Nasal Cannula 2 06/01/18 13:00 89 20 141/83 100 Oxymask 10 06/01/18 12:51 36.3 89 22 139/71 100 Oxymask 10 06/01/18 11:24 36.8 62 18 122/72 (89) 100 Nasal Cannula 2.0 06/01/18 10:20 16 98 Nasal Cannula 2.0 06/01/18 10:19 98 Nasal Cannula 2.0 06/01/18 10:00 59 16 112/67 (82) 92 Room Air 06/01/18 09:10 94 Room Air 06/01/18 07:57 36.6 65 18 124/72 (89) 94 Room Air 06/01/18 07:15 Room Air 06/01/18 04:25 36.7 54 16 125/76 90 Room Air 06/01/18 04:11 60 17 125/74 95 06/01/18 04:02 125/74 06/01/18 03:48 60 06/01/18 03:41 60 17 95 Room Air 06/01/18 03:36 64 28 99 Room Air 06/01/18 03:34 142/71 06/01/18 03:21 63 20 100 Nasal Cannula 2.0 06/01/18 03:06 68 24 100 Nasal Cannula 2.0 06/01/18 03:01 136/67 06/01/18 02:37 70 18 100 Nasal Cannula 2.0 06/01/18 02:31 135/69 06/01/18 02:02 59 21 114/54 100 Nasal Cannula 2.0 06/01/18 00:41 86 Room Air 06/01/18 00:41 58 117/60 98 Nasal Cannula 2.0 06/01/18 00:41 99 Nasal Cannula 2.0 06/01/18 00:36 72 06/01/18 00:24 99 Room Air 06/01/18 00:01 36.7 78 18 150/85 99 Room Air (Yaquelin Olivo PA-C) Physical Exam Notes: General: no noted distress. moderately developed, nourished Head: normocephalic, atraumatic Eyes: normal sclera ENT: mucous membranes moist Neck: supple, non-tender Lungs: clear, no respiratory distress, No wheezing/rhonchi/rales CV: RRR, no JVD, no pretibial edema Abdomen: normal BS, soft, mild right flank tenderness to palpation Extremities: no cyanosis, no calf tenderness Neuro: alert & oriented x 3 Skin: warm & dry (Yaquelin Olivo, VALERY) Laboratory Results Last 24 Hours Test 06/01/18 00:23 06/01/18 02:10 06/01/18 08:23 White Blood Count 11.38 K/uL Red Blood Count 5.01 M/uL Hemoglobin 15.1 g/dL Hematocrit 44.2 % Mean Corpuscular Volume 88.2 fL Mean Corpuscular Hemoglobin 30.1 pg Mean Corpuscular Hemoglobin Concent 34.2 g/dl Platelet Count 186 K/uL Mean Platelet Volume 11.3 fL Neutrophils (%) (Auto) 76.1 % Lymphocytes (%) (Auto) 14.0 % Monocytes (%) (Auto) 8.1 % Eosinophils (%) (Auto) 1.5 % Basophils (%) (Auto) 0.1 % Neutrophils # (Auto) 8.67 K/uL Lymphocytes # (Auto) 1.59 K/uL Monocytes # (Auto) 0.92 K/uL Eosinophils # (Auto) 0.17 K/uL Basophils # (Auto) 0.01 K/uL RDW Standard Deviation 41.2 fL RDW Coefficient of Variation 13.0 % Immature Granulocyte % (Auto) 0.2 % Immature Granulocyte # (Auto) 0.02 K/uL Sodium Level 138 mmol/L Potassium Level 3.4 mmol/L Chloride Level 103 mmol/L Carbon Dioxide Level 26 mmol/L Anion Gap 9.0 mmol/L Blood Urea Nitrogen 16 mg/dl Creatinine 1.17 mg/dl Est Creatinine Clear Calc Drug Dose 44.5 ml/min Estimated GFR () 57.0 Estimated GFR (Non- 49.2 BUN/Creatinine Ratio 13.7 Random Glucose 115 mg/dl Calcium Level 9.0 mg/dl Magnesium Level 1.9 mg/dl Total Bilirubin 0.4 mg/dl Direct Bilirubin 0.1 mg/dl Aspartate Amino Transf (AST/SGOT) 11 U/L Alanine Aminotransferase (ALT/SGPT) 17 U/L Alkaline Phosphatase 132 U/L Total Protein 6.9 gm/dl Albumin 3.7 gm/dl Lipase 121 U/L Hepatitis C Antibody Screen NEG Urine Color YELLOW Urine Appearance CLEAR Urine pH 6.5 Urine Specific [place] 1.011 Urine Protein NEG Urine Glucose (UA) NEG Urine Ketones NEG Urine Occult Blood NEG Urine Nitrite NEG Urine Bilirubin NEG Urine Urobilinogen NEG Urine Leukocyte Esterase NEG Urine WBC (Auto) 0 /hpf Urine RBC (Auto) 0-4 /hpf Urine Hyaline Casts (Auto) 0 /lpf Urine Epithelial Cells (Auto) 10-20 /lpf Urine Bacteria (Auto) NEG Prothrombin Time 10.1 SECONDS Prothromb Time International Ratio 1.0 Activated Partial Thromboplast Time 26.3 SECONDS Partial Thromboplastin Ratio 1.0 (Yaquelin Olivo, PA-C) Assessment and Plan RIGHT HYDRONEPHROSIS S/P CYSTOSCOPY, RIGHT URETERAL STENT DAY#[address] UPTON Pt states currently pain moderately controlled, improved some after stent placement today -morphine, tramadol prn pain -advance diet -urology consult HYPERKALEMIA K: 3.4. Pt receiving NSS + 20meq K at 100ml/hr -prp in am HTN stable -holding amiloride/HCTZ at this time H/O CKD III Cr: 1.1 -monitor renal functions -avoid nephrotoxic agents when possible TOBACCO ABUSE -smoking cessation discussed -nicotine patch DVT Prophylaxis -lovenox Disposition likely home tomorrow admitted med surg Full Code Pt does not currently follow with PCP, previously followed with [facility]. She would like to resume f/u there. Social service consult for assistance as pt currently does not have medical insurance. Pt was seen with Dr Quezada. See addendum (Yaquelin Olivo, DINORAH-C)
--- NOTE | 2018-06-01 15:32 | OPERATIVE REPORT ---
DATE OF OPERATION: 06/01/2018 PREOPERATIVE DIAGNOSIS: Right hydronephrosis and right UPJ obstruction tentative. POSTOPERATIVE DIAGNOSES: Right hydronephrosis and right UPJ obstruction tentative with urethral stenosis. PROCEDURES PERFORMED: Cysto, right retrograde, right stent and urethral dilation. HISTORY OF PRESENTATION: The patient is a 63-year-old female who in the past had an open pyelolithotomy in the . She presented 5 years ago with right hydronephrosis, was assessed, this resolved. She had a renal scan that did not show obstruction, but stasis. She has been doing okay until more recently where she has been having more episodes of right flank pain. She was seen a week ago in the Emergency Room with severe right flank pain, and she was discharged with antibiotics. Did well until yesterday and pain was severe and came back with severe right flank pain and worsening hydronephrosis on ultrasound and the CT scan was worse than it was 5 years ago of the hydronephrosis. Discussed the options with her. It appears that she probably has a UPJ obstruction, as there is no ureteral dilation and she was taken electively to the operating room for cysto and right stent. DESCRIPTION OF THE PROCEDURE: The patient was taken to the operating room. She had Lovenox given this morning. She had Cipro given in the operating room. Attempt to place a 21-Barbadian scope was not successful. I was not able to get a 17-Barbadian in and out of this, so she was dilated from 16-Barbadian to 24-Barbadian with Jean dilators and it was clearly tight. I was unable to place a 21-Barbadian cystoscope. I did not see any tumors in her bladder, was able to pass a 5-Barbadian open-ended catheter into the distal ureter and did a retrograde. There was clearly a narrowing at the level of UPJ with a real severe curve and it was difficult to see the contrast in the pelvis, but appeared to be dilated after several bursts of contrast and you could see that it was diluted and quite dilated. I attempted to place a Dual-Flex guidewire through the open-ended catheter without any success, then I attempted to place a Roadrunner without success and then finally I was able to pass a 0.25 straight Glidewire into the proximal renal pelvis and then I advanced the open-ended catheter over this into the renal pelvis, removed the Glidewire, and had a hydronephrotic drip. Then, I passed a Dual-Flex guidewire through this and removed the 5-Barbadian open-ended catheter coaxially and then I passed a 4.8 2230 stent over the catheter into the renal pelvis. There was good curl in the renal pelvis. I did remove the guidewire and confirmed position in both places and the patient was then transferred to the recovery room in stable condition. I attest to the content of the Intraoperative Record and any orders documented therein. Any exception s are noted below.
[2018-06-02 03:35] VITALS: BP 118/66; PULSE 53; TEMP 36.8; O2SAT 94
[2018-06-02 06:03] LABS: BASO % 0.1 %; BASO ABS # 0.01 K/uL (0-0.2); EOS % 0.8 %; EOS ABS # 0.06 K/uL (0-0.5); HEMATOCRIT 42.7 % (37-47); HEMOGLOBIN 13.8 g/dL (12.0-16.0); IG# 0.02 K/uL (0.00-0.02); LYMPH % 26.2 %; LYMPH ABS # 1.98 K/uL (1.2-3.4); MEAN CELL VOLUME 90.9 fL (80-100); MEAN CORPUSCULAR HEMOGLOBIN 29.4 pg (25-34); MEAN CORPUSCULAR HGB CONC 32.3 g/dl (32-36); MEAN PLATELET VOLUME 11.6 fL (7.4-10.4); MONO % 8.6 %; MONO ABS # 0.65 K/uL (0.11-0.59); NEUT ABS # 4.83 K/uL (1.4-6.5); PLATELET COUNT 157 K/uL (130-400); RED CELL DISTRIBUTION WIDTH CV 13.6 % (11.5-14.5); RED CELL DISTRIBUTION WIDTH SD 45.3 fL (36.4-46.3); WHITE BLOOD COUNT 7.55 K/uL (4.8-10.8)
[2018-06-02 06:35] LABS: CALCIUM 8.4 mg/dl (8.5-10.1); CREATININE 0.92 mg/dl (0.60-1.20); POTASSIUM 4.1 mmol/L (3.5-5.1)
[2018-06-02 07:34] VITALS: BP 128/70; PULSE 56; TEMP 37.1; O2SAT 92
[2018-06-02] MEDS: NSS + 20MEQ KCL 1000ML 1,000 ML IV SCH (07:37)
[2018-06-02] MEDS: NICOTINE 21 MG/24 HR TDSY TD SCH (07:37)
--- NOTE | 2018-06-02 08:04 | Anesthesiology Progress Note ---
Anesthesia Post Op Note Date & Time Jun 02, 2018 at 08:03 Vital Signs Pain Intensity: 0.0 Vital Signs Past 12 Hours Date Time Temp Pulse Resp B/P (MAP) Pulse Ox O2 Delivery O2 Flow Rate FiO2 06/02/18 07:34 37.1 56 22 128/70 (89) 92 Room Air 06/02/18 03:35 36.8 53 18 118/66 (83) 94 Room Air 06/01/18 23:35 Room Air 06/01/18 23:05 37.0 59 18 117/70 (86) 99 Room Air Notes Mental Status: alert / awake / arousable, participated in evaluation Pt Amnestic to Procedure: Yes Nausea / Vomiting: adequately controlled Pain: adequately controlled Airway Patency, RR, SpO2: stable & adequate BP & HR: stable & adequate Hydration State: stable & adequate Anesthetic Complications: no major complications apparent
--- NOTE | 2018-06-02 08:31 | Hospitalist Progress Note ---
Hospitalist Progress Note Date of Service Jun 02, 2018. 0815 (Yaquelin Olivo PA-C) ATTENDING ADDENDUM: Patient seen and examined care coordinated with Jillian Olivo PA-C Patient is status post right ureteral stent yesterday Right flank pain has almost resolved, Has not required any pain medication since morning No nausea, no fever chills Tolerating diet, ambulating in hallway Evaluated by urology team Stable to be discharged home today Patient will be followed up with urology in 2-3 weeks for possible UPJ repair Prescription for 5 days of p.o. ciprofloxacin sent to pharmacy Please refer to further documentation by Jillian Olivo PA-C for discussion of other chronic issues Kaci Quezada MD (Kaci Quezada M.D.) Subjective Pt evaluation today including: conversation w/ patient, physical exam, chart review, lab review, review of inpatient medication list Pt seen and examined. Is sitting up on edge of bed. Pt reports feeling much better this morning with only slight "twinge" of R flank pain. Hasn't had to have any pain medications since yesterday afternoon. No further nausea, no vomiting. Is having flatus, no BM yet today. Urinating without difficulty or dysuria, has noticed blood tinge urine. Pt reports increased appetite and feels ready to go home today. Denies fever/chills, dizziness, CP, SOB, other abdominal pain. (Yaquelin Olivo PA-C) Medications Medications (Trade) Dose Ordered Sig/Sharath Route Start Time Stop Time Status Last Admin Dose Admin Enoxaparin Sodium (Lovenox Inj) 40 mg Q24H SQ 06/01/18 10:00 07/01/18 09:59 Future Hold 06/01/18 09:49 40 MG Iothalamate Meglumine (Cysto-Conray II 17.2%) 250 ml STK-MED ONCE .ROUTE 06/01/18 11:10 06/01/18 11:11 DC 06/01/18 12:42 28 ML Ciprofloxacin/ Dextrose (Cipro / D5W) 400 mg STK-MED ONCE .ROUTE 06/01/18 12:16 06/01/18 12:17 DC 06/01/18 12:18 400 MG (Yaquelin Olivo PA-C) Objective Vital Signs Date Time Temp Pulse Resp B/P (MAP) Pulse Ox O2 Delivery O2 Flow Rate FiO2 06/02/18 07:34 37.1 56 22 128/70 (89) 92 Room Air 06/02/18 03:35 36.8 53 18 118/66 (83) 94 Room Air 06/01/18 23:35 Room Air 06/01/18 23:05 37.0 59 18 117/70 (86) 99 Room Air 06/01/18 19:05 37.0 61 16 111/60 (77) 93 Room Air 06/01/18 16:04 36.7 57 16 126/76 (93) 97 Room Air 06/01/18 15:45 99 Nasal Cannula 2.0 06/01/18 15:10 36.8 67 17 116/75 (89) 95 Nasal Cannula 2.0 06/01/18 14:35 76 18 115/75 (88) 95 Room Air 06/01/18 14:05 96 Nasal Cannula 2.0 06/01/18 14:05 36.7 77 14 130/77 (94) 96 Nasal Cannula 2.0 06/01/18 13:50 76 15 141/69 98 Nasal Cannula 2 06/01/18 13:40 79 17 130/85 98 Nasal Cannula 2 06/01/18 13:30 36.2 90 22 136/69 97 Nasal Cannula 2 06/01/18 13:20 85 20 140/71 97 Nasal Cannula 2 06/01/18 13:10 92 16 149/54 99 Nasal Cannula 2 06/01/18 13:00 89 20 141/83 100 Oxymask 10 06/01/18 12:51 36.3 89 22 139/71 100 Oxymask 10 06/01/18 11:24 36.8 62 18 122/72 (89) 100 Nasal Cannula 2.0 06/01/18 10:20 16 98 Nasal Cannula 2.0 06/01/18 10:19 98 Nasal Cannula 2.0 06/01/18 10:00 59 16 112/67 (82) 92 Room Air 06/01/18 09:10 94 Room Air (Yaquelin Olivo PA-C) Physical Exam General Appearance: WD/WN, no apparent distress Eyes: normal inspection ENT: pharynx normal, + pertinent finding (mucous membranes moist) Neck: supple, trachea midline Respiratory/Chest: lungs clear, normal breath sounds, no respiratory distress Cardiovascular: regular rate, rhythm, no murmur Abdomen: normal bowel sounds, soft, + pertinent finding (slight right CVA and flank tenderness to palpation, no other abdominal tenderness to palpation) Extremities: normal range of motion, no pedal edema Neurologic/Psychiatric: alert, normal mood/affect, oriented x 3 Skin: warm/dry (Yaquelin Olivo PA-C) Laboratory Results Last 24 Hours Test 06/01/18 08:23 06/02/18 05:35 Prothrombin Time 10.1 SECONDS Prothromb Time International Ratio 1.0 Activated Partial Thromboplast Time 26.3 SECONDS Partial Thromboplastin Ratio 1.0 White Blood Count 7.55 K/uL Red Blood Count 4.70 M/uL Hemoglobin 13.8 g/dL Hematocrit 42.7 % Mean Corpuscular Volume 90.9 fL Mean Corpuscular Hemoglobin 29.4 pg Mean Corpuscular Hemoglobin Concent 32.3 g/dl Platelet Count 157 K/uL Mean Platelet Volume 11.6 fL Neutrophils (%) (Auto) 64.0 % Lymphocytes (%) (Auto) 26.2 % Monocytes (%) (Auto) 8.6 % Eosinophils (%) (Auto) 0.8 % Basophils (%) (Auto) 0.1 % Neutrophils # (Auto) 4.83 K/uL Lymphocytes # (Auto) 1.98 K/uL Monocytes # (Auto) 0.65 K/uL Eosinophils # (Auto) 0.06 K/uL Basophils # (Auto) 0.01 K/uL RDW Standard Deviation 45.3 fL RDW Coefficient of Variation 13.6 % Immature Granulocyte % (Auto) 0.3 % Immature Granulocyte # (Auto) 0.02 K/uL Sodium Level 139 mmol/L Potassium Level 4.1 mmol/L Chloride Level 105 mmol/L Carbon Dioxide Level 29 mmol/L Anion Gap 4.0 mmol/L Blood Urea Nitrogen 13 mg/dl Creatinine 0.92 mg/dl Est Creatinine Clear Calc Drug Dose 56.7 ml/min Estimated GFR () 76.3 Estimated GFR (Non- 65.8 BUN/Creatinine Ratio 14.0 Random Glucose 104 mg/dl Calcium Level 8.4 mg/dl (Schreckengost, Yaquelin ., PA-C) Assessment and Plan RIGHT HYDRONEPHROSIS S/P CYSTOSCOPY, RIGHT URETERAL STENT DAY#[address] UPTON Pt reports pain much improved today. Has not need analgesic since yesterday. -tolerating liquid diet -urology consult and recommendations - pt has follow up appointment scheduled with Dr Garcia HYPERKALEMIA Probable from previous vomiting. Resolved. K: 4.1 today. Pt receiving NSS + 20meq K at 100ml/hr HTN stable -holding amiloride/HCTZ at this time H/O CKD III Today Cr: 0.92 from 1.1. GFR: 65 -monitor renal functions -avoid nephrotoxic agents when possible TOBACCO ABUSE -smoking cessation discussed -pt denied nicotine patch DVT Prophylaxis -lovenox Disposition: likely discharge home today Full Code Pt does not currently follow with PCP, previously followed with [facility] clinic. She would like to resume f/u there. Social service consult for assistance as pt currently does not have medical insurance. Pt was seen with Dr Quezada. See addendum (Yaquelin Olivo, VALERY)
[2018-06-02 08:46] VITALS: O2SAT 92
[2018-06-02] MEDS ORDERED: CIPR1TAB10 PO (10:01)
--- NOTE | 2018-06-02 10:34 | Discharge Summary ---
Discharge Summary Date of Service Jun 02, 2018. Discharge Summary Admission Date: Jun 01, 2018 at 03:30 Discharge Date: Jun 02, 2018 Discharge Disposition: Home Principal Diagnosis: Right Hydronephrosis Procedures: Cystoscopy, Urethral Dilation, Right Retrograde, Right Ureteral Stent Insertion Consultations: [facility] physician group urology Dr. Upton Pending Studies/Follow-Up: N/A Medication Reconciliation New Medications: Ondansetron Odt (Zofran Odt) 8 Mg Soltab 8 MG SL Q6H PRN for Nausea, #30 TAB Tamsulosin Hcl (Flomax) 0.4 Mg Cap 0.4 MG PO HS for 30 Days, #30 CAP Tramadol HCl (Tramadol HCl) 50 Mg Tab 1 TAB PO Q8 PRN for Pain, #14 TABS Continued Medications: Amiloride/Hctz (Amiloride/Hydrochlorothia 5-50 mg) 1 Ea Tab 1 TAB PO DAILY Ciprofloxacin Hcl (Cipro) 500 Mg Tab 500 MG PO BID for 5 Days, #10 TAB (This prescription has been renewed) Referrals At Discharge Follow up Referrals: Urologist Referral - Please Call For Appointment with Eran Garcia M.D. Admission Information HPI (per Admitting provider): HISTORY OF PRESENT ILLNESS: History obtained from the patient and records. Medical history is significant for hypertension, urolithiasis, and ongoing tobacco abuse. Recent confinement in 06/2013 for pyelonephritis. Last week, the patient had achy right flank pain similar to kidney stone pain associated with nauseous, emesis. Seen at the ER. CT abdomen and pelvis showed worsening right hydronephrosis, findings suggestive of chronic UPJ obstruction, postsurgical changes. Patient discharged on Cipro, narcotic medication. Told to follow up with outpatient with her urologist. Symptoms improved. Last night, the patient had recurrence of symptoms. No chest pain, no shortness of breath, some chills, no hematuria. Physical Exam (per Admitting): PHYSICAL EXAMINATION: VITAL SIGNS: Blood pressure was noted to be 130/80, pulse rate 60, RR 20, temperature 36.7, sats 90 on room air. GENERAL: Noted to be uncomfortable, no respiratory distress. SKIN: Normal color, warm. HEENT: Bespectacled, pink palpebral conjunctivae. No ptosis. Dry mucosa. NECK: Short, supple. CHEST: Decreased breath sounds, no tenderness. HEART: RRR, no murmur. ABDOMEN: Soft, nontender. BACK minimal flank tenderness. EXTREMITIES: No LE edema. No tenderness. No gross deformities. NEUROLOGIC: Coherent. No gross focality. Hospital Course RIGHT HYDRONEPHROSIS S/P CYSTOSCOPY, RIGHT URETERAL STENT ON 06/01/[address] UPTON Pt reports pain much improved after procedure. Has not need analgesics since yesterday. -tolerating liquid diet -urology consult and recommendations - pt has follow up appointment scheduled with Dr Garcia HYPERKALEMIA Probable from previous vomiting. Resolved. K: 4.1 today. Pt received NSS + 20meq K at 100ml/hr HTN stable -held amiloride/HCTZ during hospitalization H/O CKD III Today Cr: 0.92 from 1.1. GFR: 65 -renal functions improved during course TOBACCO ABUSE -smoking cessation discussed -pt denied nicotine patch while in hospital Total time spent on discharge = 40 minutes This includes examination of the patient, discharge planning, medication reconciliation, and communication with other providers. Discharge Instructions Discharge Instructions Date of Service Jun 02, 2018. Admission Reason for Admission: Right Flank Discomfort Discharge Discharge Diagnosis / Problem: Right Hydronephrosis Discharge Goals Goal(s): Decrease discomfort, Improve function, Increase independence, Improve disease control Activity Recommendations Activity Limitations: resume your previous activity . Instructions / Follow-Up Instructions / Follow-Up Follow up with Dr Garcia - Urology as scheduled Follow up with PCP on 06/07/2018 at 10:45AM with Dr Gissell Jeong MD [facility] Please try to quit smoking. Please follow up with PCP for assistance with quitting smoking. Do not take Aspirin , Motrin, Aleve , Naproxen , Advil , Ibuprofen -avoid NSAID' s for pain ( can cause worsening of your kidney function ) May take Tylenol as needed You are ordered Tramadol 50 mg tab every 8 hrs as needed if pain is not resolved after taking Tylenol Zofran as needed for Nausea Continue to take Flomax till evaluated by Urology it is common to have urinary frequency , mild irritation and blood in urine intermittently for the Stent for any episode of severe pain , gross bleeding in urine , fever or chills - please call Urology office or if it is after hours come to Emergency Department Current Hospital Diet Patient's current hospital diet: AHA Heart Healthy Discharge Diet Recommended Diet: AHA Diet (Heart Healthy) Procedures Procedures Performed: Cystoscopy, Urethral Dilation, Right Retrograde, Right Ureteral Stent Insertion Pending Studies Studies pending at discharge: no Medical Emergencies . Who to Call and When: Medical Emergencies: If at any time you feel your situation is an emergency, please call 911 immediately. . Non-Emergent Contact Non-Emergency issues call your: Primary Care Provider, Urologist Call Non-Emergent contact if: you have a fever, your pain is worsening . Past History Medical & Surgical History: (1) Kidney stones (2) HTN (hypertension) (3) Hydronephrosis, right (4) CKD (chronic kidney disease), stage III (5) Tobacco abuse . Additional Copies To Eran Garcia M.D.
[2018-06-02] MEDS ORDERED: ONDA8TAB62 SL (10:57)
[2018-06-02] MEDS ORDERED: TAMS0.4C38 PO (10:57)
[2018-06-02] MEDS ORDERED: ULT50X PO (10:57)
[2018-06-02 12:48] VITALS: BP 128/70; PULSE 56; TEMP 37.1; O2SAT 92
--- NOTE | 2018-06-02 13:10 | Urology Progress Note ---
Progress Note Date of Service Jun 02, 2018. Subjective Pt evaluation today including: conversation w/ patient, conversation w/ family , physical exam, chart review, lab review, conversation w/ water resource consultant Pain: denies PO Intake: tolerating Voiding: no voiding problems 63 YO female, right hydronephrosis, right UPJ obstruction, POD #1 s/p cystoscopy , right ureteral stent placement. Patient reports feeling great this AM. States that she cannot feel stent, states that her flank pain has completely resolved. Is still experiencing hematuria, expected. Aside from that states that her urinary pattern is not bothersome. Denies fever/chills, nausea/vomiting. Constitutional: No fever, No chills Respiratory: No shortness of breath Cardiovascular: No chest pain Abdomen: No pain, No nausea, No vomiting Female : + hematuria, No dysuria, No urinary frequency, No incontinence Neurologic: No numbness/tingling Skin: No rash Objective Vital Signs Date Time Temp Pulse Resp B/P (MAP) Pulse Ox O2 Delivery O2 Flow Rate FiO2 06/02/18 12:48 37.1 56 22 92 Room Air 06/02/18 08:46 92 Room Air 06/02/18 07:34 37.1 56 22 128/70 (89) 92 Room Air 06/02/18 07:12 Room Air 06/02/18 03:35 36.8 53 18 118/66 (83) 94 Room Air 06/01/18 23:35 Room Air 06/01/18 23:05 37.0 59 18 117/70 (86) 99 Room Air 06/01/18 19:05 37.0 61 16 111/60 (77) 93 Room Air 06/01/18 16:04 36.7 57 16 126/76 (93) 97 Room Air 06/01/18 15:45 99 Nasal Cannula 2.0 06/01/18 15:10 36.8 67 17 116/75 (89) 95 Nasal Cannula 2.0 06/01/18 14:35 76 18 115/75 (88) 95 Room Air 06/01/18 14:05 96 Nasal Cannula 2.0 06/01/18 14:05 36.7 77 14 130/77 (94) 96 Nasal Cannula 2.0 06/01/18 13:50 76 15 141/69 98 Nasal Cannula 2 06/01/18 13:40 79 17 130/85 98 Nasal Cannula 2 06/01/18 13:30 36.2 90 22 136/69 97 Nasal Cannula 2 06/01/18 13:20 85 20 140/71 97 Nasal Cannula 2 06/01/18 13:10 92 16 149/54 99 Nasal Cannula 2 06/01/18 13:00 89 20 141/83 100 Oxymask 10 Physical Exam General Appearance: no apparent distress Eyes: normal inspection ENT: hearing grossly normal Neck: supple, no JVD Respiratory/Chest: no respiratory distress, no accessory muscle use Cardiovascular: no JVD Abdomen: non tender, soft Extremities: normal inspection Neurologic/Psychiatric: alert, normal mood/affect, oriented x 3 Skin: normal color Laboratory Results Last 24 Hours Test 06/02/18 05:35 White Blood Count 7.55 K/uL Red Blood Count 4.70 M/uL Hemoglobin 13.8 g/dL Hematocrit 42.7 % Mean Corpuscular Volume 90.9 fL Mean Corpuscular Hemoglobin 29.4 pg Mean Corpuscular Hemoglobin Concent 32.3 g/dl Platelet Count 157 K/uL Mean Platelet Volume 11.6 fL Neutrophils (%) (Auto) 64.0 % Lymphocytes (%) (Auto) 26.2 % Monocytes (%) (Auto) 8.6 % Eosinophils (%) (Auto) 0.8 % Basophils (%) (Auto) 0.1 % Neutrophils # (Auto) 4.83 K/uL Lymphocytes # (Auto) 1.98 K/uL Monocytes # (Auto) 0.65 K/uL Eosinophils # (Auto) 0.06 K/uL Basophils # (Auto) 0.01 K/uL RDW Standard Deviation 45.3 fL RDW Coefficient of Variation 13.6 % Immature Granulocyte % (Auto) 0.3 % Immature Granulocyte # (Auto) 0.02 K/uL Sodium Level 139 mmol/L Potassium Level 4.1 mmol/L Chloride Level 105 mmol/L Carbon Dioxide Level 29 mmol/L Anion Gap 4.0 mmol/L Blood Urea Nitrogen 13 mg/dl Creatinine 0.92 mg/dl Est Creatinine Clear Calc Drug Dose 56.7 ml/min Estimated GFR () 76.3 Estimated GFR (Non- 65.8 BUN/Creatinine Ratio 14.0 Random Glucose 104 mg/dl Calcium Level 8.4 mg/dl Assessment and Plan 63 YO female, right hydronephrosis, right UPJ obstruction, POD #1 s/p cystoscopy , right ureteral stent placement. Tolerating stent extremely well. Recommend she remain on Flomax QHS for duration of stent. Recommend 5d course of antibiotics to prevent UTI. Will arrange for outpatient follow up with Dr. Garcia to discuss UPJ repair within 2 weeks, stent to remain in place until follow up surgery. Thank you for allowing us to participate in the care of this patient. Contact our service with any questions/concerns.
== END 2018-06-02 14:07 | disposition home or self-care (01) ==
LOC: C.EDB 23:58 → C.MSN 06-01 03:30 → ENRESERV 06-01 03:56
PROVIDERS: ADMIT Internal Medicine; ATTEND Hospitalist
DX: N13.30 Unspecified hydronephrosis (principal); I12.9 Hypertensive chronic kidney disease with stage 1 through stage 4 chronic kidney disease, or unspecified chronic kidney disease; N18.3 Chronic kidney disease, stage 3 (moderate); Z88.2 Allergy status to sulfonamides; Z88.0 Allergy status to penicillin; Z79.899 Other long term (current) drug therapy; F17.200 Nicotine dependence, unspecified, uncomplicated

== ENCOUNTER 2019-12-06 05:21 | Inpatient (IN) ==
--- NOTE | 2019-11-22 09:56 | PAT Medication Instructions ---
Medication Instructions Date of Service November 22, 2019 Home Medications amiloride-hydrochlorothiazide 1 tab PO QPM atorvastatin 10 mg PO PM Take evening before surgery amiloride-hydrochlorothiazide 1 tab PO QPM atorvastatin 10 mg PO PM Other Notes If you have any questions please call us at [phone] or [phone] or [phone] or [phone]
--- NOTE | 2019-11-23 09:22 | Anesthesiology Consultation ---
Date of Service November 23, 2019 Assessment & Plan (1) Encounter for pre-operative examination: - Urology: 11/09/19: Right UPJ obstruction, preserved function with delayed drainage. Ongoing issues with severe pain attacks, prompting sooner evaluation. Dr. Garcia evaluated patient today as well, most recent CT imaging reviewed.. Will plan to coordinate joint procedure with Dr. Unger for RSO. Plan to proceed with Robot assisted laproscopic pyeloplasty of right kidney with right ureteral stent placement, with Dr. Garcia." - Gynecology: 11/01/19: "Solid mass of R ovary. Likely present for at least 2 years but has apparently grown slightly over time. Appearance looks most c/w fibroma but discussed with patient cannot know benign vs malignant or exact nature of mass without pathology. Does not clinically seem to be torsing as her pain is not in this location, but rather up high where kidney with hydronephrosis is located; yet torsion is a risk at this size. For prevention of torsion and to get surgical diagnosis, would recommend removal." Chart Review Chart Review: Acceptable Risk for Surgery and Patient seen in Pre Admission Testing Teaching & Discussion Pre-Anesthesia Teaching/Discussion Notes: Instructed NPO after midnight before surgery,except medications with 15 cc of water. Medication instructions pro vided according to the PAT guidelines. History Surgery Operation Date: 12/06/19 11:50 Proposed Procedures p Robotic Laparoscopic-Assisted Right Dismembered Pyeloplasty - Gordo Garcia MD s Laparoscopic Removal of Right Fallopian Tube and Ovary - Adriana Unger MD Height/Weight Height: 5 ft 3 in Weight: 69.8 kg Allergies Allergy/AdvReac Type Severity Reaction Status Date / Time Penicillins Allergy Unknown . Verified 11/17/19 13:17 Sulfa (Sulfonamide Allergy Unknown . Verified 11/17/19 13:17 Antibiotics) Medications Home Medications Medication Instructions Recorded Confirmed Last Taken amiloride-hydrochlorothiazide 1 tab PO QPM 07/06/18 11/23/19 09/02/19 atorvastatin 10 mg PO PM 11/17/19 11/23/19 Unknown Past Medical History Medical History History of nephrolithiasis Hydronephrosis Hyperlipidemia Osteoporosis Ovarian mass Ureteropelvic junction (UPJ) obstruction Urinary frequency Exercise / Class Metabolic Activity II 4-5 Yardwork/Stairs/Walk up hill Past Family History Family History Mother Breast cancer Slow to wake up after anesthesia Brother Family history of diabetes mellitus Past Surgical History Surgical History H/O tooth extraction History of colonoscopy with polypectomy History of cystoscopy cytoscopy with stent placement: 06/01/18: LMA#4 at [facility] History of esophagogastroduodenoscopy (EGD) History of lithotripsy History of lumpectomy of left breast History of nephrolithotomy with removal of calculi Past Anesthesia History No Hx of Anesthesia Complications Mother: "slow to wake" History of PONV No Hx of PONV and No Hx of Motion Sickness Social History Smoking Status: Current every day smoker tobacco type: cigarettes Smoking cigarettes per day: 1/2 ppd x 20+ years Do You Dip or Chew Tobacco: No Hx Alcohol Use: Yes alcohol intake frequency: holidays/special occasions only Hx Substance Use: No substance use type: does not use Review of Systems Patient denies chest pain, shortness of breath, dyspnea on exertion, reflux, cough, wheezing, palpitations. Physical Exam Vital Signs VITALS BP 124/74 P 65 TEMP 98.3 SP02 99%RA RESP 18 PHYSICAL Full neck and c-spine range of motion. Full TMJ range of motion. TMD 3 finger breaths Mallampati Score 1 Dentition: full dentures upper/lower Lungs: clear throughout to auscultation Cardiac: regular rate and rhythm, no murmurs noted Spine: normal Carotid arteries: negative bruit Extremities: no edema Testing Laboratory Results 11/23/19 09:45 Urine Color Yellow 11/23/19 09:45 Urine Appearance Clear (Clear) 11/23/19 09:45 Urine pH 7.0 (4.5-7.5) 11/23/19 09:45 Ur Specific [place] 1.014 (1.000-1.030) 11/23/19 09:45 Urine Protein Negative (Negative) 11/23/19 09:45 Urine Glucose (UA) Negative (Negative) 11/23/19 09:45 Urine Ketones Negative (Negative) 11/23/19 09:45 Urine Nitrite Negative (Negative) 11/23/19 09:45 Ur Leukocyte Esterase Negative (Negative) 11/23/19 09:45 Blood Type B Positive 11/23/19 09:45 Antibody Screen NEGATIVE 11/23/19 09:45 10/26/19 SODIUM 138 POTASSIUM 3.6 CHLORIDE 107 CO2 26 BUN 16 CREATININE 0.91 GLUCOSE 123 Electrocardiogram Date: 11/23/19 SB at 55bpm. iRBBB. Chest X-Ray Date: 11/23/19 Findings: + NAD
[2019-11-23 10:05] LABS: Basophils # (auto) 0.01 K/uL (0-0.2); Basophils % (auto) 0.2 %; Eosinophils # (auto) 0.14 K/uL (0-0.5); Eosinophils % (auto) 2.5 %; Hemoglobin 16.2 g/dL (12.0-16.0); Immature Granulocytes # (auto) 0.01 K/uL (0.00-0.02); Immature Granulocytes % (auto) 0.2 %; Lymphocytes # (auto) 2.24 K/uL (1.2-3.4); Lymphocytes % (auto) 39.4 %; Mean Corpuscular Hemoglobin 30.7 pg (25-34); Mean Corpuscular Hgb Conc 34.5 g/dL (32-36); Mean Platelet Volume 11.2 fL (7.4-10.4); Neutrophils # (auto) 2.89 K/uL (1.4-6.5); Neutrophils % (auto) 50.7 %; Platelet Count 182 K/uL (130-400); RDW Coefficient of Variation 12.9 % (11.5-14.5); RDW Standard Deviation 42.1 fL (36.4-46.3); Red Blood Count 5.28 M/uL (4.2-5.4); White Blood Count 5.69 K/uL (4.8-10.8)
--- NOTE | 2019-11-23 10:18 | XRay Report ---
XR chest Pre-admission PA/Lat HISTORY: 64 years-old Female pat preoperative exam. No acute chest complaints COMPARISON: CT abdomen and pelvis 10/26/2019 TECHNIQUE: PA and lateral views of the chest FINDINGS: Cardiomediastinal and hilar silhouettes are within normal limits. There is no pneumothorax, pleural e ffusion, focal airspace consolidation or overt pulmonary edema. Degenerative changes of the shoulders and spine. Surgical clips project over the mid abdomen. The bones appear grossly intact. IMPRESSION: No acute process. ACT 112: Negative or not required by law. The above report was generated using voice recognition software. It may contain grammatical, syntax o r spelling errors. Electronically signed by: Jovanny Liao M.D. 11/23/2019 10:17 AM
[2019-11-23 10:27] LABS: Appearance Urine Clear (Clear); Bilirubin Urine Negative (Negative); Blood Urine Negative (Negative); Color Urine Yellow; Glucose Urine UA Negative (Negative); Ketones Urine Negative (Negative); Leukocyte Esterase Urine Negative (Negative); Nitrite Urine Negative (Negative); Protein Urine Negative (Negative); Specific Gravity Urine 1.014 (1.000-1.030); Urobilinogen Urine Negative (Negative)
--- NOTE | 2019-11-23 17:52 | Electrocardiogram Report ---
Test Reason : Blood Pressure : / mmHG Vent. Rate : 055 BPM Atrial Rate : 055 BPM P-R Int : 194 ms QRS Dur : 082 ms QT Int : 414 ms P-R-T Axes : 048 041 042 degrees QTc Int : 396 ms Sinus bradycardia Incomplete right bundle branch block Otherwise normal ECG No previous ECGs available Confirmed by Eran Acuna ([id number]) on 11/23/2019 5:52:03 PM Referred By: Gordo Garcia Confirmed By:Tim Acuna
[2019-12-06] MEDS ORDERED: LR 15ML/HR IV SCH (06:00)
[2019-12-06] MEDS ORDERED: HEPARIN SOD 5,000 UNIT/0.5 ML VIAL SC SCH (06:00)
[2019-12-06] MEDS ORDERED: CIPROFLOXACIN 400 MG/200 ML BAG IV SCH (06:00)
[2019-12-06] MEDS ORDERED: ePHEDrine sulfate 50 MG/ML AMP IV PRN (07:02)
[2019-12-06] MEDS ORDERED: ONDANSETRON INJ 2 MG/ML 2 ML VIAL IV PRN ×2 (07:02→14:14)
[2019-12-06] MEDS ORDERED: ATROPINE SULFATE 0.1 MG/ML 10ML SYR IV PRN (07:02)
[2019-12-06] MEDS ORDERED: GLYCOPYRROLATE 0.2 MG/ML VIAL ONE (07:10)
[2019-12-06] MEDS ORDERED: MIDAZOLAM HCL 1 MG/ML 2ML VIAL ONE (07:10)
[2019-12-06] MEDS ORDERED: DEXAMETHASONE SOD INJ 4 MG/ML VIAL ONE ×2 (07:10→08:45)
[2019-12-06] MEDS ORDERED: LIDOCAINE HCL 2% 2 ML VIAL/AMP(20MG/ML) INFIL ONE (07:10)
[2019-12-06] MEDS ORDERED: PROPOFOL IV EMULSION 10 MG/ML 20 ML VIAL IV ONE (07:10)
[2019-12-06] MEDS ORDERED: ONDANSETRON INJ 2 MG/ML 2 ML VIAL ONE (07:10)
[2019-12-06] MEDS ORDERED: PHENYLEPHRINE HCL 10 MG/ML VIAL ONE (07:10)
[2019-12-06] MEDS ORDERED: SUCCINYLCHOLINE CHLORIDE 20 MG/ML 10 ML VIAL ONE (07:10)
[2019-12-06] MEDS ORDERED: ePHEDrine sulfate 50 MG/ML AMP ONE (07:10)
[2019-12-06] MEDS ORDERED: NEOSTIGMINE METHYLSULFATE 5 MG/5 ML SYR ONE (07:10)
[2019-12-06] MEDS ORDERED: fentaNYL citrate 100 MCG/2 ML VIAL ONE ×2 (07:10→12:33)
[2019-12-06] MEDS ORDERED: ROCURONIUM BROMIDE 10 MG/ML 5 ML VIAL ONE ×2 (07:19→07:21)
--- NOTE | 2019-12-06 07:22 | History & Physical Bridge Note ---
Date of Service December 06, 2019 History & Physical Bridge Note I have examined the patient, reviewed the History & Physical and in the interval since the performance of the History & Physical I have noted the following changes of clinical significance: no changes noted
[2019-12-06] MEDS ORDERED: SCOPOLAMINE 1.5 MG TDSY ONE (07:33)
[2019-12-06] MEDS ORDERED: BUPIVACAINE 0.5 % 5 MG/1 ML MPF 30ML VIAL ONE (07:35)
[2019-12-06] MEDS ORDERED: SCOPOLAMINE 1.5 MG TDSY TD ONE (08:00)
[2019-12-06] MEDS ORDERED: ALBUTEROL HFA INHALER 8.5 GM ONE (08:44)
[2019-12-06] MEDS ORDERED: METOCLOPRAMIDE HCL INJ 5 MG/ML 2 ML VIAL ONE (08:44)
[2019-12-06] MEDS ORDERED: raNITIdine HCl 25 MG/ML VIAL IV ONE (08:44)
[2019-12-06] MEDS ORDERED: HYDROmorphone INJ 2 MG/ML SYR/VIAL ONE (08:48)
[2019-12-06] MEDS ORDERED: SODIUM CHLORIDE 0.9% INJ 10 ML VIAL ONE (08:49)
[2019-12-06] MEDS ORDERED: DiphenhydrAMINE HCL 50 MG/ML VIAL ONE (08:50)
[2019-12-06] MEDS ORDERED: LARYING-O-JET KIT (LTA) ONE (09:27)
--- NOTE | 2019-12-06 09:34 | Operative Report ---
PG Post Operative Report Pre & Post Diagnosis Operation Date: 12/06/19 07:30 Pre-Op Diagnosis: Right UreteroPelvic Junction Obstruction, Hydronephrosis, Right Ovarian Mass Post-Op Diagnosis: Right UreteroPelvic Junction Obstruction, Hydronephrosis, Right Ovarian Mass I identified the patient and participated in the time-out.: Yes Procedure Operation Date: 12/06/19 07:30 Actual Procedures p Robotic Laparoscopic-Assisted Right Dismembered Pyeloplasty(Right) - Gordo Garcia MD s Right Robotic Assisted Laparoscopic Salpingooopherectomy(Right) - Adriana Unger MD Surgeon Adriana Unger MD Brine Plant Operator Jose Estimated Blood Loss 0 Findings Consistent with Post-Op Diagnosis Specimens Right tube and ovary Anesthesia Type General Complications none Disposition Accompanied Patient To Recovery: No Description of Procedure My portion of this procedure was the right salpingo-oophorectomy. Patient was positioned by Dr. Garcia's team and laparoscopic ports were established in a manner that would allow for access to both areas of interest. Dr Garcia sat to the console and ensured the cecum was mobilized adequately for both procedures. He was able to visualize the ovary and lift it out from the pelvis. I then sat to the console. The ovary was noted to be enlarged as expected, and also found to be torsed x2, with the IP ligament and utero-ovarian therefore in close apposition. These vascular structures were coagulated and divided. The fallopian tube was coagulated and amputated. The ovary and tube, en bloc, were then released and fell into the left pelvis as the patient was in lateral position. Dr Garcia then placed the ovary and tube into a laparoscopic catch bag and secured this sample to the assistant distribution manager port. I left the OR at that time, with him planning to proceed with his own portion of the procedure. See separate dictation for details. I attest to the content of the Intraoperative Record and any orders documented therein. Any exceptions are noted below.
[2019-12-06] MEDS: fentaNYL citrate 100 MCG/2 ML VIAL IV PRN ×2 (12:34→12:39)
[2019-12-06 12:38] LABS: Basophils # (auto) 0.02 K/uL (0-0.2); Basophils % (auto) 0.1 %; Eosinophils # (auto) 0.04 K/uL (0-0.5); Eosinophils % (auto) 0.3 %; Hematocrit (blood only) 46.1 % (37-47); Hemoglobin 15.6 g/dL (12.0-16.0); Immature Granulocytes # (auto) 0.03 K/uL (0.00-0.02); Immature Granulocytes % (auto) 0.2 %; Lymphocytes # (auto) 2.66 K/uL (1.2-3.4); Lymphocytes % (auto) 16.7 %; Mean Corpuscular Volume 88.7 fL (80-100); Mean Platelet Volume 11.1 fL (7.4-10.4); Monocytes # (auto) 0.34 K/uL (0.11-0.59); Monocytes % (auto) 2.1 %; Neutrophils # (auto) 12.85 K/uL (1.4-6.5); Neutrophils % (auto) 80.6 %; Platelet Count 214 K/uL (130-400); RDW Coefficient of Variation 12.8 % (11.5-14.5); RDW Standard Deviation 41.5 fL (36.4-46.3); White Blood Count 15.94 K/uL (4.8-10.8)
--- NOTE | 2019-12-06 12:45 | XRay Report ---
KUB CLINICAL HISTORY: S/P Pyeloplasty, Stent Placement COMPARISON STUDY: CT of the abdomen and pelvis October 26, 2019. FINDINGS: Surgical drain is in place. Right ureteral stent appears appropriately positioned. 2 surgic al clips are noted within the operative bed. There are no unexpected radiopaque foreign bodies. Bowel gas pattern is normal. IMPRESSION: 1. Appropriately positioned right ureteral stent. A few surgical clips within the operative bed and a surgical drain. 2. No unexpected radiopaque foreign bodies. ACT 112: Negative or not required by law. Electronically signed by: Juanjose Kerns M.D. 12/06/2019 12:44 PM
[2019-12-06 12:46] LABS: Mean Corpuscular Hgb Conc 33.8 g/dL (32-36)
--- NOTE | 2019-12-06 12:54 | Operative Report ---
PG Post Operative Report Pre & Post Diagnosis Operation Date: 12/06/19 07:30 Pre-Op Diagnosis: Right UreteroPelvic Junction Obstruction, Hydronephrosis, Right Ovarian Mas Post-Op Diagnosis: Right UreteroPelvic Junction Obstruction, Hydronephrosis, Right Ovarian Mas I identified the patient and participated in the time-out.: Yes Procedure Operation Date: 12/06/19 07:30 Actual Procedures p Robotic Laparoscopic-Assisted Right Dismembered Pyeloplasty(Right) - Gordo Garcia MD s Right Robotic Assisted Laparoscopic Salpingooopherectomy(Right) - Adriana Unger MD Surgeon Eran Garcia MD Stapling Machine Operator Jose Estimated Blood Loss 25 Findings Consistent with Post-Op Diagnosis Specimens 1. Right ovarian mass 2. Right ureteropelvic junction Description of Procedure The patient was identified in the preopertive holding area, appropriate informed consents were reviewed and completed and the patient was transferred to the operative suite. Upon arrival, appropriate antibiotics and anesthesia were administered and the patient was placed in left side down right side up lateral position with the bed flexed and the patient padded and braced in standard fashion. Following sterile prep and drape a Veress needle was passed into the right upper quadrant and the abdomen insufflated to 15 mmHg. Placed a 12 mm Visiport just lateral to the rectus border approximately 2 cm cephalad to the umbilicus. I entered with a 0 degree lens and inspected revealing no significant adhesions or other anterior wall pathology that would prohibit our port placement. There was no varus trauma. I then placed an 8 mm robotic port approximately 8 cm inferior and 2 cm lateral. I placed an additional 8 cm robotic port just under the costal margin along the rectus margin. An additional 8 mm port was placed in the midline approximately 4 cm inferior to the umbilicus. A 12 mm port was placed just superior to the umbilicus in the midline. Before beginning the renal portion of the case, we turned our attention to the deep pelvis and I mobilized the cecum and appendix out of our [id number], exposing the underlying right adnexal mass. This mass was grasped and pulled towards our camera which revealed only a solitary connection to the fallopian tube. Dr. Unger then entered and completed the excision of this mass. There was excellent hemostasis. The mass was left in the dependent portion of the abdominal cavity, and I proceeded to re-docked the robot in a more cephalad direction utilizing the 2 upper and lateral robotic ports to facilitate completion of the kidney portion of the case. There were no complications through Dr. Unger's portion of the case, further details as dictated previously in her operative report. I then proceeded to begin the renal portion of the case. I mobilized the colon by incising the white line of Toldt medializing the colon. I then kocherized the duodenum to expose the inferior vena cava and gonadal vein. Just lateral to these I was able to expose the ureter and heavily distended renal pelvis. I skeletonized both of these circumferentially. There was an inflammatory rind around the renal pelvis as would be expected with a chronic UPJ obstruction. After exposure, I placed a 2-0 Vicryl stitch through the upper portion of the renal pelvis and tacked it to the anterior abdominal wall to help with elevation and retraction. I then made an incision into the renal pelvis. Inspection revealed healthy-appearing mucosa without mass or other abnormality. There were no free-floating stones visualized. I then moved below the UPJ and began to partially incised the ureter distal to the presumed area of obstruction. After incising partially, I spatulated the ureter on the posterior aspect for a length of approximately 2-1/2 cm. I then excised the intervening segment of tissue by completing my renal pelvis incision and the ureteral incision and passing this piece of tissue off the table as a specimen labeled right UPJ. At this point the renal pelvis had contracted appropriately but I did not feel it was substantial tailoring required. I began by reapproximating the ureter and the renal pelvis by placing a stitch on the posterior aspect of the ureter through the deepest part of my spatulation and connecting this to the posterior and distal aspect of the renal pelvis incision. There was no tension at this time. I then began to sew the posterior wall and after completing the posterior wall anastomosis, I began a second stitch at the dependent portion of the incision before placing a 4.7 Italian by 26 cm double-J ureteral stent through the ureterotomy. With a good curl seen at the proximal end, I took this curl into the renal pelvis and completed my reapproximation of the ureter and renal pelvis. 4-0 Vicryl's were utilized for the full reapproximation anastomosis. There was excellent hemostasis at the conclusion of the anastomosis and visibly patent ureter. The previously resected adnexal mass was collected in an Endo Catch bag and subsequently withdrawn by expansion of the right lower quadrant robotic port. A REY drain was placed through the upper most robotic port. All other ports were extracted without difficulty. I closed the lower pole extraction site utilizing a running 0 Vicryl through the fascia. 2-0 Vicryl was used to reapproximate Ryland's fascia. 4-0 Monocryl was utilized to close the skin. The drain was sutured in place with a 2-0 silk. 0 Vicryl's were used for the 212 mm ports to close the deep layer followed by 4-0 Monocryl to close the skin on all ports. All ports were infiltrated with half percent Marcaine prior to closure. Dermabond was placed over the incisions. Case was subsequently concluded. There were no complications. Hemostasis was excellent. She was extubated and taken to the PACU in stable condition. Esther Castro assisted from incision to closure. I attest to the content of the Intraoperative Record and any orders documented therein. Any exceptions are noted below.
[2019-12-06 12:55] LABS: BUN Creatinine Ratio 12.7 (10-20); Calcium 9.2 mg/dl (8.5-10.1); Est GFR (African American) 68.5; Est GFR (Non-African American) 59.1; Potassium 3.6 mmol/L (3.5-5.1)
--- NOTE | 2019-12-06 13:10 | Anesthesiology Progress Note ---
Date of Service December 06, 2019 Anesthesia Post Procedure Vital Signs Vital Signs: Temp Pulse Pulse Resp BP Pulse Ox 12/06/19 12:55 36.6 C 57 L 15 115/72 96 12/06/19 12:45 36.6 C 58 L 14 134/65 97 12/06/19 12:35 53 L 14 121/61 98 12/06/19 12:25 69 18 136/62 100 12/06/19 12:15 78 16 134/51 L 100 12/06/19 12:05 54 L 14 119/55 L 100 12/06/19 11:57 36.4 C L 76 10 L 149/70 H 100 12/06/19 06:03 36.8 C 69 18 138/52 L 96 Pain Intensity Abdomen: Pain Intensity: 5 Transfer of Care Handoff Completed per policy Notes Mental Status: alert / awake / arousable and participated in evaluation Patient Amnestic to Procedure: Yes Nausea / Vomiting: adequately controlled Pain: adequately controlled Airway Patency, RR, SpO2: stable & adequate BP & HR: stable & adequate Hydration State: stable & adequate Anesthetic Complications: no major complications apparent and Pt Satisfied with anesthetic care
[2019-12-06] MEDS ORDERED: MoRPHine SULFATE 4 MG/ML 1 ML CARP\\VIAL IV PRN (14:14)
[2019-12-06] MEDS ORDERED: MoRPHine SULFATE 2 MG/ML CARP IV PRN (14:14)
[2019-12-06] MEDS ORDERED: OXYCODONE HCL IR 5 MG TAB (IMMEDIATE RELEASE) PO PRN ×2 (14:14)
[2019-12-06] MEDS: ACETAMINOPHEN 1,000 MG/100 ML VIAL IV SCH ×2 (14:42→21:13)
[2019-12-06] MEDS: LACTATED RINGER'S 1,000 ML IV SCH ×2 (15:35→23:17)
[2019-12-06] MEDS: CHECK SCOPOLAMINE PATCH PLACEMENT SCH (17:00)
[2019-12-06] MEDS: CIPROFLOXACIN 400 MG/200 ML BAG IV SCH (21:10)
[2019-12-06] MEDS: FAMOTIDINE 10 MG TABLET PO SCH (21:12)
[2019-12-06] MEDS: AMILORIDE/HCTZ 5/50MG TAB PO SCH (21:12)
[2019-12-06] MEDS: DOCUSATE SODIUM 100 MG CAP PO SCH (21:12)
[2019-12-06] MEDS: ATORVASTATIN 10 MG TAB PO SCH (21:12)
[2019-12-06] MEDS: HEPARIN SOD 5,000 UNIT/0.5 ML VIAL SQ SCH (21:20)
[2019-12-07] MEDS: CHECK SCOPOLAMINE PATCH PLACEMENT SCH ×2 (00:09→08:04)
[2019-12-07] MEDS: ACETAMINOPHEN 1,000 MG/100 ML VIAL IV SCH ×3 (05:20→21:07)
[2019-12-07] MEDS: LACTATED RINGER'S 1,000 ML IV SCH ×3 (06:08→22:21)
[2019-12-07 06:30] LABS: Mean Corpuscular Hgb Conc 32.3 g/dL (32-36); Mean Platelet Volume 11.4 fL (7.4-10.4); Platelet Count 167 K/uL (130-400)
[2019-12-07 07:02] LABS: BUN Creatinine Ratio 12.4 (10-20); Calcium 8.9 mg/dl (8.5-10.1); Creatinine Clr Calc Pharmacy 46.4 ml/min; Est GFR (African American) 59.7; Est GFR (Non-African American) 51.5; Potassium 3.8 mmol/L (3.5-5.1)
[2019-12-07 07:03] LABS: Basophils # (auto) 0.01 K/uL (0-0.2); Basophils % (auto) 0.1 %; Eosinophils # (auto) 0.01 K/uL (0-0.5); Eosinophils % (auto) 0.1 %; Hematocrit (blood only) 42.7 % (37-47); Hemoglobin 13.8 g/dL (12.0-16.0); Immature Granulocytes # (auto) 0.01 K/uL (0.00-0.02); Immature Granulocytes % (auto) 0.1 %; Lymphocytes # (auto) 2.31 K/uL (1.2-3.4); Lymphocytes % (auto) 22.5 %; Mean Corpuscular Hemoglobin 29.7 pg (25-34); Monocytes # (auto) 0.97 K/uL (0.11-0.59); Monocytes % (auto) 9.5 %; Neutrophils # (auto) 6.95 K/uL (1.4-6.5); Neutrophils % (auto) 67.7 %; RDW Coefficient of Variation 13.3 % (11.5-14.5); RDW Standard Deviation 44.5 fL (36.4-46.3); Red Blood Count 4.64 M/uL (4.2-5.4); White Blood Count 10.26 K/uL (4.8-10.8)
--- NOTE | 2019-12-07 07:38 | Anesthesiology Progress Note ---
Date of Service December 07, 2019 Anesthesia Post Procedure Vital Signs Vital Signs: Temp Pulse Pulse Resp BP BP Pulse Ox 12/07/19 07:28 37 C 56 L 16 111/57 L 94 12/07/19 03:17 37.2 C 60 18 119/68 90 12/06/19 23:08 37.1 C 62 18 110/68 94 12/06/19 19:09 36.7 C 68 16 119/70 100 12/06/19 16:22 36.6 C 72 18 129/73 100 12/06/19 15:27 36.6 C 59 L 16 123/72 100 12/06/19 14:15 36.9 C 65 20 150/72 H 100 12/06/19 13:45 36.5 C 61 18 130/70 99 12/06/19 12:55 36.6 C 57 L 15 115/72 96 12/06/19 12:45 36.6 C 58 L 14 134/65 97 12/06/19 12:35 53 L 14 121/61 98 12/06/19 12:25 69 18 136/62 100 12/06/19 12:15 78 16 134/51 L 100 12/06/19 12:05 54 L 14 119/55 L 100 12/06/19 11:57 36.4 C L 76 10 L 149/70 H 100 Pain Intensity Abdomen: Pain Intensity: 5 Notes Mental Status: alert / awake / arousable and participated in evaluation Patient Amnestic to Procedure: Yes Nausea / Vomiting: adequately controlled Pain: adequately controlled Airway Patency, RR, SpO2: stable & adequate BP & HR: stable & adequate Hydration State: stable & adequate Anesthetic Complications: no major complications apparent and Pt Satisfied with anesthetic care
--- NOTE | 2019-12-07 07:51 | Urology Progress Note ---
Date of Service December 07, 2019 Assessment & Plan (1) UPJ obstruction, acquired: Postoperative day #1 status post right robotic dismembered pyeloplasty and excision of adnexal mass Progressing appropriately Advance diet Ambulate Remove White Possible DC home this afternoon or tomorrow Subjective Doing extremely well thus far She is ambulatory pain is well controlled No nausea or vomiting Hungry Physical Exam Physical Exam: Incisions appropriate Darnell serosanguineous Urine clear, White Results & Data Vital Signs (Past 12 Hours) Vital Signs Temp Pulse Resp BP Pulse Ox 12/07/19 07:28 37 C 56 L 16 111/57 L 94 12/07/19 03:17 37.2 C 60 18 119/68 90 12/06/19 23:08 37.1 C 62 18 110/68 94 PG Care Time/CCT Total # of Minutes Spent Total Time Spent with Patient: Total time spent is greater than 50% in coordination of care (as documented) at patient's floor/unit and/or counseling patient: Coding Level of Care Code None Diagnoses UPJ obstruction, acquired N13.5
[2019-12-07] MEDS: CIPROFLOXACIN 400 MG/200 ML BAG IV SCH (08:04)
[2019-12-07] MEDS: FAMOTIDINE 10 MG TABLET PO SCH ×2 (08:08→21:06)
[2019-12-07] MEDS: DOCUSATE SODIUM 100 MG CAP PO SCH ×2 (08:08→21:07)
[2019-12-07] MEDS: HEPARIN SOD 5,000 UNIT/0.5 ML VIAL SQ SCH ×2 (08:09→21:07)
[2019-12-07] MEDS: AMILORIDE/HCTZ 5/50MG TAB PO SCH (21:06)
[2019-12-07] MEDS: ATORVASTATIN 10 MG TAB PO SCH (21:07)
[2019-12-08] MEDS: LACTATED RINGER'S 1,000 ML IV SCH (05:35)
[2019-12-08] MEDS: ACETAMINOPHEN 1,000 MG/100 ML VIAL IV SCH (05:35)
[2019-12-08 06:21] LABS: Basophils # (auto) 0.01 K/uL (0-0.2); Basophils % (auto) 0.1 %; Eosinophils # (auto) 0.12 K/uL (0-0.5); Eosinophils % (auto) 1.3 %; Hematocrit (blood only) 41.2 % (37-47); Hemoglobin 13.4 g/dL (12.0-16.0); Immature Granulocytes # (auto) 0.02 K/uL (0.00-0.02); Immature Granulocytes % (auto) 0.2 %; Lymphocytes # (auto) 2.19 K/uL (1.2-3.4); Lymphocytes % (auto) 24.4 %; Mean Corpuscular Hemoglobin 29.8 pg (25-34); Mean Corpuscular Hgb Conc 32.5 g/dL (32-36); Mean Corpuscular Volume 91.8 fL (80-100); Mean Platelet Volume 11.1 fL (7.4-10.4); Monocytes # (auto) 0.85 K/uL (0.11-0.59); Monocytes % (auto) 9.5 %; Neutrophils # (auto) 5.78 K/uL (1.4-6.5); Neutrophils % (auto) 64.5 %; Platelet Count 153 K/uL (130-400); RDW Coefficient of Variation 13.2 % (11.5-14.5); RDW Standard Deviation 44.5 fL (36.4-46.3); Red Blood Count 4.49 M/uL (4.2-5.4); White Blood Count 8.97 K/uL (4.8-10.8)
[2019-12-08 06:54] LABS: BUN Creatinine Ratio 15.5 (10-20); Creatinine Clr Calc Pharmacy 47.7 ml/min; Est GFR (African American) 61.7; Est GFR (Non-African American) 53.2; Potassium 3.6 mmol/L (3.5-5.1)
--- NOTE | 2019-12-08 08:14 | Urology Progress Note ---
Date of Service December 08, 2019 Assessment & Plan (1) UPJ obstruction, acquired: 64 year-old female postoperative day #2 status post right robotic dismembered pyeloplasty and excision of adnexal mass. Patient doing well without complaints. REY drainage minimal overnight. Continue ambulation. Patient requesting discharge today. Discharge instructions reviewed with patient. Plan to discontinue REY prior to discharge. Patient agreeable to plan, all questions answered. Subjective Patient alert, sitting in bed. Reports she is doing well post surgery. Ambulating independently. Denies pain. Voiding without difficulty - reports pink-tinged urine. Appetite is well, denies nausea or vomiting. Denies fevers or chills. Anxious to go home. Review of Systems Constitutional: as per Subjective / HPI; no fever and no chills Gastrointestinal: as per Subjective / HPI; no abdominal pain, no nausea and no vomiting Genitourinary: as per Subjective / HPI Neurologic: no dizziness and no syncope Physical Exam Constitutional: well developed and well nourished; no acute distress and not ill appearing Respiratory: normal respiratory effort and able to speak in complete sentenc es; no respiratory distress and no audible wheezes Gastrointestinal (Abdomen): Inspection/Auscultation: abdomen normal to inspection; abdomen not distended Percussion/Palpation: + abdomen tender (Mildly tender to palpation) and abdomen soft; no guarding and abdomen not rigid Skin: Lap sites to abdomen clean and dry, well-approximated, and without erythema or warmth. Dermabond intact. REY drain draining small amount of serosanguineous fluid. Psychiatric: Orientation: alert, oriented x 3 and cooperative Affect: euthymic affect Genitourinary: no CVA tenderness Results & Data Vital Signs (Past 12 Hours) Vital Signs Temp Pulse Resp BP BP Pulse Ox 12/08/19 07:12 36.6 C 58 L 18 145/76 H 96 12/07/19 23:25 36.8 C 57 L 16 120/70 94 12/07/19 21:02 62 16 143/71 H 93 PG Care Time/CCT Total # of Minutes Spent Total Time Spent with Patient: Total time spent is greater than 50% in coordination of care (as documented) at patient's floor/unit and/or counseling patient: Coding Level of Care Code None Diagnoses UPJ obstruction, acquired N13.5
[2019-12-08] MEDS: HEPARIN SOD 5,000 UNIT/0.5 ML VIAL SQ SCH (09:24)
[2019-12-08] MEDS: FAMOTIDINE 10 MG TABLET PO SCH (09:24)
[2019-12-08] MEDS: DOCUSATE SODIUM 100 MG CAP PO SCH (09:24)
--- NOTE | 2019-12-22 08:26 | Discharge Summary ---
Date of Service December 22, 2019 Admission HPI Per Admitting Provider Symptomatic right UPJ obstruction presenting for robotic pyeloplasty Principal Diagnosis UPJ obstruction/hydronephrosis Discharge Data Allergies Allergy/AdvReac Type Severity Reaction Status Date / Time Penicillins Allergy Severe Rash Verified 12/20/19 12:11 Sulfa (Sulfonamide Allergy Severe Rash Verified 12/20/19 12:11 Antibiotics) Procedures Performed Operation Date: 12/06/19 07:30 Actual Procedures p Robotic Laparoscopic-Assisted Right Dismembered Pyeloplasty(Right) - Gordo Garcia MD s Right Robotic Assisted Laparoscopic Salpingooopherectomy(Right) - Adriana Unger MD Hospital Course (1) UPJ obstruction, acquired: Patient admitted for a robotic pyeloplasty - details of the procedure as dictated previously in my operative report - in summary, he tolerated the procedure very well - she was in stable condition overnight with appropriate urine output and stable labs -Her White catheter was removed on postoperative day #1 Her REY drain removed on postoperative day #2 and she was in stable condition for discharge home Total Time Total Time Spent Total Time Spent (In Minutes): 30 Total Time Includes: Examination of the Patient and Discharge Planning Discharge Plan Discharge Items Patient Disposition: Home - Self-Care Reason For Visit: UPJ Obstruction, Hydronephrosis, Right Ovarian Mas Discharge Diagnosis: UPJ Obstruction, Hydronephrosis, right ovarian mass Condition on Discharge: Good Activity: Per Instructions section Lifting: No more than 25 pounds Bathing Comment: Ok to shower in 1 day, no soaking or tub baths until incisions heal Sexual Activity: Wait until after follow-up appointment Exercise/Sports: Wait until after follow-up appointment Driving/Machine Use: No driving while taking prescription pain medication Non-emergency contact: Urologist Call non-emergency contact if: your pain is worsening, your pain is concerning for you, your temperature is above 101, your wound has increased redness, your wound has increased drainage and your wound pain has increased Follow-up/Referrals: Adriana Unger MD [Physician] - 12/20/19 2:45 pm Gordo Garcia MD [Physician] - 01/17/20 1:00 pm Gissell Mayorga MD [Primary Care Provider] - 12/14/19 11:20 am Diet: Regular Addtl Attending Provider Instructions: Please take all medications as prescribed and keep all follow-ups as scheduled. Please call our office at [phone] with any questions, concerns or need to reschedule appointments for any reason. We are happy to assist you. Recovering at home: We recommend having someone with you for the first few days after surgery to help care for you. It is okay to shower tomorrow. Please avoid swimming, bathing or using hot tub until incisions are well healed. Avoid driving until you are not requiring pain medication any further. Walk at least a few times a day. Increase your distance, as you feel able. Stairs in your home are okay. Please avoid strenuous or sexual activity until your follow-up. We recommend using stool softener (i.e. Colace) to prevent constipation and straining, especially the first two weeks post operatively. Call [facility] at [phone] if you experience: Chest pain or trouble breathing (call 401 or go to the hospital). Fever of 101F or higher Symptoms of infection at incision site, including redness or swelling, warmth, or bad-smelling drainage If you have catheter, and you notice: o Bloody urine or drainage that is dark red or has large clots (Please remember a small amount of blood is normal) o No drainage from the catheter for more than 6 hours o The catheter comes out of your bladder Pain that is not controlled with medicines Pending Studies at Discharge: Yes (pathology) Stand-Alone Forms: My [facility], Opioid Pain Management, Smoking Cessation Medications and DC Order Prescriptions: New oxycodone-acetaminophen [Percocet] 5-325 mg tablet 1 tab PO TID PRN (Reason: pain) Qty: 14 RF: 0 docusate sodium [Colace] 100 mg capsule 100 mg PO BID Qty: 60 RF: 0 Continued atorvastatin 10 mg Tablet 10 mg PO PM RF: 0 amiloride-hydrochlorothiazide 5-50 mg Tablet 1 tab PO QPM RF: 0 Discharge Orders: Discharge Order (Routine); Ordered 12/08/19 Ordered By: Esther Castro Admission Data Admit Date/Time: 12/06/19 11:21 Attending Provider: Gordo Garcia Admit Provider: Gordo Garcia Primary Care Provider: Gissell Mayorga Other Providers: Adriana Unger Other Interventions: Discharge Summary Assessment (RN) Last Done: 12/08/19 09:42 DC Date/Time DO NOT enter until pt leaves facility: 12/08/19 10:31 Coding Level of Care Code D/C Day Management <30 mins Diagnoses UPJ obstruction, acquired N13.5
== END 2019-12-08 10:31 | disposition home or self-care (01) | DRG 661 ==
LOC: ASU 05:21 → 3N 11:21